=== PATIENT | male | born 1950 | race Caucasian/White ===

== ENCOUNTER 2017-10-02 08:54 | Outpatient (CLI) | payer MEDICARE, MEDICAID ==
--- NOTE | 2017-10-02 10:08 | CT ---
CT OF THE CHEST WITHOUT CONTRAST PER LOW DOSE CANCER SCREENING PROTOCOL: Date: 10/02/17 HISTORY: Persistent cough for over a year. Patient has a greater than 50 pack year smoking history. TECHNIQUE: Multiple contiguous axial images were obtained in a CT of the chest without contrast per low dose can cer screening protocol. Sagittal and coronal reformats were performed. FINDINGS: Emphysematous changes are seen in the lungs. Scarring is seen in the right apex associated with calci fications. No pulmonary nodules are identified. No pneumothorax or pleural effusion seen on the right . There is a trace left pleural effusion. The heart is normal in size. Calcifications are seen in the coronary arteries. No hilar or mediastina l lymphadenopathy are appreciated on this limited noncontrast examination. There are remote bilateral rib fractures. The visualized subdiaphragmatic structures are unremarkable . Degenerative changes are seen in the spine. The chest wall soft tissues are unremarkable. IMPRESSION: 1. Lung-RADS Category 1 - negative. 2. Trace left pleural effusion. POS: [facility]
--- NOTE | 2017-10-02 11:37 | ULT ---
ABDOMINAL AORTIC ULTRASOUND: CLINICAL HISTORY: Abdominal aortic screening for aneurysm. FINDINGS: The proximal abdominal aorta measures 1.9 x 2.2 cm. The mid abdominal aorta measures 1.9 x 1.5 cm. The distal abdominal aorta measures 1.8 x 1.7 cm. There is no aneurysmal dilatation of the imaged ab dominal aorta. There is minimal atherosclerotic irregularity. IMPRESSION: No aneurysmal dilatation of the imaged abdominal aorta. POS: [facility]
== END 2017-10-02 08:55 | disposition home or self-care (01) ==
LOC: ULT 08:54
PROVIDERS: ATTEND Family Medicine
DX: Z13.6 Encounter for screening for cardiovascular disorders (principal); J44.9 Chronic obstructive pulmonary disease, unspecified; F17.210 Nicotine dependence, cigarettes, uncomplicated; J90 Pleural effusion, not elsewhere classified; Z12.5 Encounter for screening for malignant neoplasm of prostate; Z13.1 Encounter for screening for diabetes mellitus; Z00.00 Encounter for general adult medical examination without abnormal findings
CPT/HCPCS: 76775; G0297; 36415; 80061; 82947; G0103

== ENCOUNTER 2018-09-27 09:30 | Emergency (ER) | payer MEDICARE, MEDICAID ==
[2018-09-27] MEDS ORDERED: methylPREDNISolone Sod Succ/PF 125 MG/2 ML VIAL ONE (10:05)
[2018-09-27 10:39] LABS: Hemoglobin 14.3 g/dL (14.0-18.0); Mean Corpuscular HGB CONC 32.6 g/dL (32.0-36.0); Mean Corpuscular Hemoglobin 29.9 pg (27.0-31.0); Mean Corpuscular Volume 91.6 fL (78.0-98.0); Mean Platelet Volume 7.6 fL (7.4-10.4); Platelet Count 282 thou/uL (130-400); RBC Distribution Width 12.2 % (11.5-14.5); Red Blood Cell (RBC) Count 4.79 mill/uL (4.70-6.10); White Blood Cell (WBC) Count 20.6 thou/uL (4.8-10.8)
[2018-09-27 10:57] LABS: Lymphocytes 12 % (21-51); MDiff Complete? YES; Monocytes 5 % (0-10); Neutrophil 82 % (42-75); Platelet Morphology Comment Appears Adequate; Reactive Lymphocytes 1 % (0-10)
[2018-09-27 11:00] LABS: ALT (SGPT) 27 U/L (8-55); AST (SGOT) 23 U/L (5-34); Albumin 4.1 g/dL (3.4-4.8); Alkaline Phosphatase 111 U/L (40-150); Anion Gap 16 mmol/L (10-20); BUN (Urea Nitrogen) 23 mg/dL (8.4-25.7); Bilirubin, Total 0.7 mg/dL (0.2-1.2); CK (CPK) 268 U/L (30-200); Calc. Creatinine Clearance 0 mL/min (70-130); Calcium 9.4 mg/dL (7.8-10.44); Carbon Dioxide 19 mmol/L (23-31); Chloride 104 mmol/L (98-107); Estimated GFR-MDRD 70; Globulin 3.3 g/dL (2.4-3.5); Glucose 107 mg/dL (80-115); Potassium 4.3 mmol/L (3.5-5.1); Protein, Total 7.4 g/dL (5.8-8.1); Sodium 135 mmol/L (136-145)
--- NOTE | 2018-09-27 11:04 | RAD ---
CHEST ONE VIEW: History: Cough. FINDINGS/IMPRESSION: Cardiac silhouette is magnified by projection. Pulmonary vasculature is unremarkable. POS: [facility]
--- NOTE | 2018-09-28 07:15 | RAD ---
CHEST 1 VIEW: HISTORY: Cough. Dyspnea. COMPARISON: 10/02/2017. FINDINGS: Cardiac silhouette is magnified by projection. Pulmonary vasculature is unremarkable. Linear areas of parenchymal scarring correlate with recent CT. No lobar consolidation or evidence of pneumothorax . Old left rib fractures are evident. IMPRESSION: Chronic-type findings appear stable. No active cardiopulmonary abnormalities are demonstrated. POS: [facility]
== END 2018-09-27 13:00 | disposition home or self-care (01) ==
LOC: ERS 09:30
DX: J44.1 Chronic obstructive pulmonary disease with (acute) exacerbation (principal); I10 Essential (primary) hypertension; J44.9 Chronic obstructive pulmonary disease, unspecified; Z87.891 Personal history of nicotine dependence; Z79.899 Other long term (current) drug therapy; Z79.82 Long term (current) use of aspirin
CPT/HCPCS: 36415; 71045; 80053; 82550; 83880; 84484; 85025; 87040; 87804; 93005; 94640; 94760; 96374; J2930; J7620

== ENCOUNTER 2019-07-10 02:32 | Inpatient (IN) | payer MEDICARE, OTHER ==
[2019-07-10] MEDS ORDERED: Propofol 1,000 MG/100 ML VIAL IV ONE (02:41)
[2019-07-10 02:54] LABS: #Basophils 0.1 thou/uL (0.0-0.2); #Eosinphils 0.3 thou/uL (0.0-0.7); #Lymphocytes 4.6 thou/uL (1.20-3.40); #Monocytes 0.8 thou/uL (0.11-0.59); #Neutrophils 4.7 thou/uL (1.40-6.50); %Basophils 0.7 % (0.0-1.0); %Eosinophils 3.1 % (0.0-10.0); %Lymphocytes 44.1 % (21.0-51.0); %Monocytes 7.5 % (0.0-10.0); %Neutrophils 44.7 % (42.0-75.0); Hemoglobin 13.3 g/dL (14.0-18.0); Mean Corpuscular HGB CONC 30.9 g/dL (32.0-36.0); Mean Platelet Volume 7.9 fL (7.4-10.4); Platelet Count 277 thou/uL (130-400); Red Blood Cell (RBC) Count 4.59 mill/uL (4.70-6.10); White Blood Cell (WBC) Count 10.5 thou/uL (4.8-10.8)
[2019-07-10 02:57] LABS: CO2 Tension 58.1 mmHg (35.0-45.0); pH, Arterial 7.23 (7.35-7.45)
[2019-07-10 02:58] LABS: Actual Bicarbonate (HCO3a) 23.7 mEq/L (22-28); Base Excess (BEa) -4.6 mEq/L (-2.0 to +3.0); Calcium, Ionized 1.16 mmol/L (1.12-1.30); Carboxyhemoglobin (COHb) 2.4 gm% (0.0-3.0); Hemoglobin (Hb) 13.2 g/dL (14.0-18.0); O2 Tension (PaO2) 548.8 mmHg (> 80.0); Potassium - ABG Lab 3.65 mmol/L (3.70-5.30)
[2019-07-10 02:59] LABS: ALV-art Gradient 91.575 (0-20); Analyzer IN Cardio ER; Puncture Site RRA
[2019-07-10 03:09] LABS: ALT (SGPT) 35 U/L (8-55); AST (SGOT) 34 U/L (5-34); Acetaminophen Less than 6.0 mcg/mL (10.0-30.0); Albumin 4.1 g/dL (3.4-4.8); Alcohol Less than 10 mg/dL (Less than 10); Alkaline Phosphatase 134 U/L (40-110); Anion Gap 17 mmol/L (10-20); BUN (Urea Nitrogen) 18 mg/dL (8.4-25.7); Bilirubin, Total 0.5 mg/dL (0.2-1.2); CK (CPK) 326 U/L (30-200); Calc. Creatinine Clearance 0 mL/min (70-130); Calcium 8.8 mg/dL (7.8-10.44); Carbon Dioxide 22 mmol/L (23-31); Chloride 106 mmol/L (98-107); Estimated GFR-MDRD 57; Globulin 2.7 g/dL (2.4-3.5); Glucose 220 mg/dL (80-115); Potassium 4.1 mmol/L (3.5-5.1); Protein, Total 6.8 g/dL (5.8-8.1); Salicylate Less than 8.0 mg/dL (15.0-30.0); Sodium 141 mmol/L (136-145)
[2019-07-10 03:35] LABS: Bacteria/HPF None Seen HPF (None Seen); RBC/HPF 0-3 HPF (0-3); Squamous Epithelial None Seen HPF (0-3)
[2019-07-10 03:36] LABS: Amphetamine Detected (NotDetected); Barbiturates Screen Not Detected (NotDetected); Benzodiazepine Screen Not Detected (NotDetected); Cocaine Metabolite Screen Not Detected (NotDetected); Medtox Control Line Valid? VALID (VALID); Medtox Reader # READER 4; Methadone Not Detected (NotDetected); Methamphetamine Detected (NotDetected); Opiate Screen Detected (NotDetected); Oxycodone Screen Not Detected (NotDetected); Phencyclidine (PCP) Not Detected (NotDetected); THC/Cannabinoid Screen Not Detected (NotDetected); Tricyclic Screen Not Detected (NotDetected)
[2019-07-10 03:37] LABS: Clarity Clear (Clear); Sperm/HPF 2+ HPF (None Seen)
[2019-07-10 03:41] LABS: Bilirubin Negative (Negative); Blood, Urine Negative (Negative); Glucose, Urine (Dipstick) Normal (Negative); Leukocyte Negative Leu/uL (Negative); Nitrite Negative (Negative); Protein, Urine (Dipstick) 50 mg/dL (Neg-Trace)
[2019-07-10 04:10] LABS: Actual Bicarbonate (HCO3a) 25.5 mEq/L (22-28); Base Excess (BEa) -1.3 mEq/L (-2.0 to +3.0); CO2 Tension 51.7 mmHg (35.0-45.0); Hemoglobin (Hb) 12.2 g/dL (14.0-18.0); O2 Tension (PaO2) 314.2 mmHg (> 80.0); pH, Arterial 7.31 (7.35-7.45)
[2019-07-10 04:11] LABS: ALV-art Gradient -22.325 (0-20); Analyzer IN Cardio ER; Calcium, Ionized 1.14 mmol/L (1.12-1.30); Carboxyhemoglobin (COHb) 1.8 gm% (0.0-3.0); Potassium - ABG Lab 3.68 mmol/L (3.70-5.30); Puncture Site RRA
[2019-07-10] MEDS ORDERED: Acetaminophen 325 MG Suppository PR PRN (04:54)
[2019-07-10] MEDS ORDERED: Bisacodyl 10 MG SUPP PR PRN (04:54)
[2019-07-10] MEDS ORDERED: Milk Of Magnesia 30 ML UDCUP PO PRN (04:54)
[2019-07-10] MEDS ORDERED: Dextrose 5 % And 0.9 % NaCl 1,000 ML IV SCH (05:00)
[2019-07-10] MEDS ORDERED: Acetaminophen 325 MG TAB PO PRN (05:05)
[2019-07-10] MEDS ORDERED: Acetaminophen 650 MG Suppository PR PRN (05:05)
[2019-07-10] MEDS ORDERED: Ventilator Sedation Protocol 1 EACH FS ONE (05:07)
[2019-07-10] MEDS ORDERED: Propofol BOLUS 1,000 MG/100 ML VIAL IV PRN (05:15)
[2019-07-10] MEDS ORDERED: fentaNYL Citrate/PF 2,000 MCG in Sodium Chloride 0.9% 60 ML IV SCH (05:15)
[2019-07-10] MEDS ORDERED: Fentanyl BOLUS 250 ML IVPB PRN (05:15)
[2019-07-10] MEDS ORDERED: Morphine 2 MG/ML SYRINGE SLOW IVP PRN (05:15)
[2019-07-10] MEDS ORDERED: DISCONTINUE PREVIOUS NARCOTIC PAIN MEDICATIONS AND BENZODIAZEPINES FS SCH (05:15)
[2019-07-10] MEDS: Sodium Bicarbonate 50 MEQ in Dextrose 5 %-0.45 % NaCl 1,000 ML IV SCH ×3 (05:24→21:32)
[2019-07-10 05:42] VITALS: BMI 25.0
--- NOTE | 2019-07-10 06:01 | HP ---
PRIMARY CARE PHYSICIAN: Arias Martniez DO The patient was last seen by Dr. Martinez in January 2018. CHIEF COMPLAINT/REASON FOR ADMISSION: Unresponsiveness. HISTORY OF PRESENT ILLNESS: The patient is a 68-year-old male with hypertension, tobacco dependence, and severe COPD, was brought in by EMS with unresponsiveness. Please note that there is no family at the bedside. Dr. Arias Martinez's office records from last year were reviewed. He has not seen Dr. Martinez since last year. He has a history of severe COPD. The patient was brought by EMS due to unresponsiveness. He was found with a needle in his arm. It is unclear who called the EMS. Per ER record, the home clinic charge nurse on the scene informed EMS, that they did not know the patient, but allowed him to enter the home to shower. The patient was hypoxic with O2 saturation of 50% at the scene. He was intubated. He received ketamine, rocuronium. The EMS also found a rescue inhaler with the patient. PAST MEDICAL HISTORY: 1. Severe COPD. 2. Hypertension. 3. Tobacco dependence. 4. Erectile dysfunction. 5. Chronic hepatitis C. 6. Chronic cough. 7. History of incarceration. The patient was 5 years at [place] [facility]. 8. History of tuberculosis, completed treatment. PAST SURGICAL HISTORY: Bilateral cataract surgery. ALLERGIES: NO KNOWN DRUG ALLERGIES. CURRENT HOME MEDICATIONS: Per review of Dr. Arias Martinez's office record from January 2018, his medications included; 1. Aspirin 81 mg daily. 2. Amlodipine 5 mg daily. 3. Symbicort 160/4.5 two puffs b.i.d. 4. Incruse Ellipta 62.5 one puff daily. 5. Bupropion ER 150 mg daily. 6. Albuterol inhaler as needed. 7. Daliresp [address] Gee .. SOCIAL HISTORY: The patient has more than 25 pack-year smoking history. He smokes up to half pack a day per review of previous record. FAMILY HISTORY: Father secondary to [place] flu. Mother with hypertension and stroke. REVIEW OF SYSTEMS: Cannot be reliably obtained from the patient due to current cognitive status. PHYSICAL EXAMINATION: VITAL SIGNS: Temperature 96.6, respiration of 20, pulse rate of 106, blood pressure of 130/85, saturation 100% on ventilator. GENERAL: A 68-year-old male, unresponsive, on mechanical ventilation. HEENT: Head, atraumatic and normocephalic. Pinpoint pupils bilaterally. Endotracheal tube noted. NECK: Supple. No JVD. No carotid bruit. LUNGS: Showed bilateral rhonchi without significant wheezing or rales. No accessory muscle use. HEART: S1, S2 present. Regular rate and rhythm. No rubs or gallops. ABDOMEN: Soft. Hypoactive bowel sounds. No guarding or rigidity. EXTREMITIES: No edema or calf tenderness. NEUROLOGIC/PSYCHIATRIC: Examination could not be reliably done due to current mentation. SKIN: Warm and dry. LYMPH NODES: No palpable lymph nodes in the neck. PERIPHERAL VASCULAR: Radial pulses palpable bilaterally. MUSCULOSKELETAL: No joint swelling or tenderness. LABORATORY FINDINGS: CBC showed WBC 10.5 with hemoglobin 13.3, hematocrit 43.1, platelet of 277. ABG showed pH 7.23 with pCO2 58.1, PO2 548 with FiO2 of 100% on mechanical ventilation. Lactic acid 3.0, sodium 141, potassium 4.1, chloride 106, bicarb 22, BUN 18, creatinine 1.25. CK was 326, alkaline phosphorus is 134. Urine drug screen was positive for amphetamine, methamphetamine, and opiates. Urinalysis showed 4 to 6 wbc's without any bacteria. EKG by my review showed sinus rhythm with left ventricular hypertrophy. QT interval was 495. Chest x-ray by my review showed increased bronchopulmonary markings without definite infiltrate. CT scan of the brain has been done. Report is pending at this time. IMPRESSION: 1. Acute hypoxic and hypercapnic respiratory failure secondary to drug overdose. 2. Severe chronic obstructive pulmonary disease. 3. Dehydration with lactic acidosis. 4. Polysubstance abuse. 5. Ongoing tobacco dependence. 6. Anemia, suspected chronic. 7. Hypertension. 8. Chronic hepatitis C. 9. Chronic cough. PLAN: The patient will be monitored in the intensive care unit. He is currently intubated. We will continue mechanical ventilation. We will minimize sedation. Consult Critical Care, Dr. Milan. IV hydration. We will add sodium bicarbonate to IV fluids due to slightly prolonged QT interval. Daily ABGs and chest x-ray. We will hold antibiotics for now. His troponin was negative. We will recheck lactic acid later today. We will discuss the plan of care with the family when they arrive. We will resume Sheila. Job ID: [id number]
[2019-07-10 06:56] LABS: Lactic Acid 1.4 mmol/L (0.5-2.2)
[2019-07-10] MEDS: Mometasone/Formoterol 120 PUFF INHALER INH SCH ×2 (07:56→19:11)
[2019-07-10] MEDS: Enoxaparin Sodium 40 MG/0.4 ML SYRINGE SC SCH (08:40)
[2019-07-10] MEDS: Famotidine/PF 20 mg/2ml Vial SLOW IVP SCH ×2 (08:41→20:07)
--- NOTE | 2019-07-10 11:00 | RAD ---
PORTABLE CHEST 1 VIEW: Date: 07/10/19 Time: 0238 hours HISTORY: Altered mental status. FINDINGS/IMPRESSION: Comparison made with exam of 09/27/18. The heart size is normal. Chronic changes are again seen. No lobar consolidation, pneumothoraces, or large effusions are seen. POS: [facility]
--- NOTE | 2019-07-10 11:02 | RAD ---
ABDOMEN 1 VIEW: Date: 07/10/19 HISTORY: Altered mental status. FINDINGS/IMPRESSION: The bowel gas pattern is unremarkable. There is a nasogastric tube with tip in the projection of the GE junction. There is a 5.5 mm calculus in the projection of the inferior pole of the right kidney. Discussed over the telephone with ER physician, Dr. Vanessa Parsons, at 0956 hours. CODE CR. POS: [facility]
--- NOTE | 2019-07-10 12:04 | CT ---
PRELIMINARY REPORT/[facility]/EMERGENCY AFTER HOURS PROCEDURE: PROCEDURE INFORMATION: Exam: CT Head Without Contrast Exam date and time: 07/10/2019 3:40 AM Clinical history: 68 years old, male; Patient HX: Unresponsive 68 y/o m presents to ED via EMS transp ort after being found down in another individual's home, with 911 caller reporting that PT had a need le in his arm when found; Unknown downtime. Individuals/homeowners on scene informed EMS that they di d not know PT but allowed him to enter the home to shower TECHNIQUE: Imaging protocol: Computed tomography of the head without contrast. COMPARISON: No relevant prior studies available. FINDINGS: Brain: No hemorrhage. Patchy whitte matter hypodensities are nonspecific but may be seen in small ves tanika chronic ischemic changes. No mass effect. Ventricles: No ventriculomegaly. Bones/joints: No acute fracture. Sinuses: Scattered paranasal sinuses mucosal thickenning. No fluid levels. Mastoid air cells: Visualized mastoid air cells are well aerated. Soft tissues: Unremarkable. IMPRESSION: No acute intracranial abnormality. Thank you for allowing us to participate in the care of your patient. Dictated and Authenticated by: Candice Nuñez MD 07/10/2019 3:51 AM Central Time ([place] & [place]) FINAL REPORT CT BRAIN WITHOUT CONTRAST: IMPRESSION: I agree with the preliminary report given by Darwin. POS: [facility]
[2019-07-10] MEDS: Lorazepam 2 MG/ML VIAL SLOW IVP PRN ×3 (12:26→15:23)
[2019-07-10] MEDS: Propofol 1,000 MG/100 ML VIAL IV PRN (15:51)
[2019-07-10 19:10] LABS: HBCM Index 0.05 S/CO (0-0.79); HBSAg Index 0.17 S/CO (0-0.99); HIV (1/2) Antibody/Antigen Non-Reactive (NonReactive); HIV 1/2 INDEX 0.08 S/CO (<1.00); Hep A IgM AB Non-Reactive (NonReactive); Hep A IgM S/CO 0.09 S/CO (0-0.79); Hep B Surf Ag Non-Reactive S/CO (NonReactive); Hepatitis B Core IgM Abs Non-Reactive (NonReactive)
[2019-07-10 19:11] LABS: Hep C IgG Ab Reflex HepC Qnt (NonReactive); Hep C Index 9.98 S/CO (0-0.79)
--- NOTE | 2019-07-11 00:24 | CON ---
DATE OF CONSULTATION: 07/10/2019 SUBJECTIVE: Mr. Bello is a 68-year-old male, who was found down with a needle in his arm at home sometime early this morning. He is admitted. His drug screen positive for amphetamines and opiates. He is mechanically ventilated. PAST MEDICAL HISTORY: Unknown. FAMILY HISTORY: Unknown. SOCIAL HISTORY: Unknown. REVIEW OF SYSTEMS: Not obtainable. PHYSICAL EXAMINATION: VITAL SIGNS: Afebrile. Blood pressure has been stable. Heart rates in the 70s , respiratory rate is 20. HEENT: Pupils are small. Sclerae anicteric. NECK: Supple. LUNGS: Clear. HEART: Regular rhythm. ABDOMEN: Soft and nontender. EXTREMITIES: Without clubbing, cyanosis, or edema. LABORATORY DATA: White count 10.5, hemoglobin 13.3, platelets 277. Electrolytes are normal. PH 7.31, CO2 of 51, PO2 of 314. IMPRESSION: Respiratory failure associated likely with an opiate overdose. He also uses methamphetamines. He is an IV drug abuser. An HIV should be sent. He will be mechanically ventilated until we are sure he is stable from neurological standpoint. CRITICAL CARE TIME: 30 minutes. Job ID: [id number] MTDD
[2019-07-11] MEDS: Propofol 1,000 MG/100 ML VIAL IV PRN (01:29)
[2019-07-11] MEDS: Lorazepam 2 MG/ML VIAL SLOW IVP PRN (01:29)
[2019-07-11 04:43] LABS: #Eosinphils 0.1 thou/uL (0.0-0.7); #Lymphocytes 2.1 thou/uL (1.20-3.40); #Monocytes 1.2 thou/uL (0.11-0.59); #Neutrophils 8.5 thou/uL (1.40-6.50); %Basophils 0.3 % (0.0-1.0); %Eosinophils 1.2 % (0.0-10.0); %Lymphocytes 17.8 % (21.0-51.0); %Monocytes 9.9 % (0.0-10.0); %Neutrophils 70.8 % (42.0-75.0); Hemoglobin 11.2 g/dL (14.0-18.0); Mean Corpuscular HGB CONC 32.8 g/dL (32.0-36.0); Mean Corpuscular Hemoglobin 30.2 pg (27.0-31.0); Mean Corpuscular Volume 92.1 fL (78.0-98.0); Mean Platelet Volume 7.8 fL (7.4-10.4); Platelet Count 233 thou/uL (130-400); RBC Distribution Width 13.7 % (11.5-14.5); Red Blood Cell (RBC) Count 3.72 mill/uL (4.70-6.10)
[2019-07-11 05:10] LABS: ALT (SGPT) 23 U/L (8-55); AST (SGOT) 18 U/L (5-34); Alkaline Phosphatase 89 U/L (40-110); Anion Gap 13 mmol/L (10-20); BUN (Urea Nitrogen) 14 mg/dL (8.4-25.7); Bilirubin, Total 0.6 mg/dL (0.2-1.2); Calc. Creatinine Clearance 78 mL/min (70-130); Calcium 8.1 mg/dL (7.8-10.44); Carbon Dioxide 24 mmol/L (23-31); Chloride 103 mmol/L (98-107); Estimated GFR-MDRD 69; Globulin 2.5 g/dL (2.4-3.5); Glucose 141 mg/dL (80-115); Potassium 3.5 mmol/L (3.5-5.1); Protein, Total 5.5 g/dL (5.8-8.1); Sodium 136 mmol/L (136-145)
[2019-07-11] MEDS: Sodium Bicarbonate 50 MEQ in Dextrose 5 %-0.45 % NaCl 1,000 ML IV SCH ×2 (05:46→21:05)
[2019-07-11 06:47] LABS: Actual Bicarbonate (HCO3a) 24.7 mEq/L (22-28); CO2 Tension 40.1 mmHg (35.0-45.0); Calcium, Ionized 1.13 mmol/L (1.12-1.30); Carboxyhemoglobin (COHb) 1.3 gm% (0.0-3.0); Hemoglobin (Hb) 11.7 g/dL (14.0-18.0); Potassium - ABG Lab 3.62 mmol/L (3.70-5.30); pH, Arterial 7.41 (7.35-7.45)
[2019-07-11 06:48] LABS: ALV-art Gradient 77.775 (0-20); Puncture Site RRA
[2019-07-11] MEDS: Mometasone/Formoterol 120 PUFF INHALER INH SCH ×2 (07:45→19:02)
[2019-07-11] MEDS: Enoxaparin Sodium 40 MG/0.4 ML SYRINGE SC SCH (08:23)
[2019-07-11] MEDS: Famotidine/PF 20 mg/2ml Vial SLOW IVP SCH ×2 (08:23→21:10)
[2019-07-11] MEDS: Senokot S 8.6-50 MG TAB PO SCH ×2 (08:23→21:13)
--- NOTE | 2019-07-11 09:55 | RAD ---
FRONTAL VIEW CHEST: INDICATIONS: ICU chest followup. COMPARISON: Previous day's chest radiograph and abdominal radiograph. FINDINGS: Diffuse interstitial opacification with superimposed areas of ground glass opacity present throughout each lung. Supportive lines and tubes are grossly stable although there is extrinsic artifact limiti ng detail. IMPRESSION: No significant interval change from the previous day. POS: [facility]
--- NOTE | 2019-07-11 11:42 | PRG ---
DATE OF SERVICE: 07/11/2019 SUBJECTIVE: Mr. Bello is combative when he is awakened. Plan was to extubate him today once sedation was held and he was awake. OBJECTIVE: VITAL SIGNS: Heart rate 107, blood pressure 143/88, oximetry is 99% on room air. LUNGS: Clear. HEART: Regular rhythm. ABDOMEN: Soft. EXTREMITIES: Without edema. LABORATORY DATA: White count 12, hemoglobin 11.2, platelets 233. Electrolytes are normal. IMPRESSION: 1. Status post drug overdose. 2. IV drug abuse. 3. Mild anemia with a normal mean corpuscular volume. 4. Drug screen positive for opiates, amphetamines and methamphetamines. 5. Hepatitis C antibody positive, human immunodeficiency virus negative. If he becomes ambulatory by the end of the day, I would think he could be discharged home if somebody is willing to come get him. Job ID: [id number]
--- NOTE | 2019-07-11 16:13 | PDOC.HOSPP ---
- Subjective Encounter Date: 07/11/19 Encounter Time: 16:00 Subjective: f/u s/p resp failure after methamphetamine OD and mech ventilation. Extubated this am and remains sleepy but arouses to direct engagement. States he wants to leave but has no home or anyone to come pick him up. - Objective Vital Signs & Weight: Vital Signs (12 hours) Temp Pulse Resp BP Pulse Ox 07/11/19 12:00 98.5 F 98 07/11/19 10:55 111 H 33 H 99 07/11/19 10:26 107 H 143/88 H 07/11/19 10:00 28 H 07/11/19 08:00 99.5 F 20 100 07/11/19 07:46 90 111/64 07/11/19 06:00 20 Weight Weight 184 lb 4.903 oz Most Recent Monitor Data Heart Rate from ECG 98 NIBP 161/88 NIBP BP-Mean 112 Respiration from ECG 28 SpO2 99 I&O: 07/10/19 07/11/19 07/12/19 06:59 06:59 06:59 Intake Total 139 3124 27.4 Output Total 275 1835 1655 Balance -136 1289 -1627.6 Result Diagrams: 07/11/19 04:15 07/11/19 04:15 Additional Labs: Accuchecks 07/11/19 07/11/19 07/11/19 12:50 06:17 00:13 POC Glucose 91 127 H 120 H 07/10/19 17:32 POC Glucose 105 Laboratory Tests 07/10/19 07/10/19 02:43 18:06 Urine Opiates Screen Detected H Ur Amphetamines Screen Detected H U Methamphetamines Scrn Detected H Hepatitis C Antibody Reflex HepC Qnt H Radiology Reviewed by me: Yes (PCXR - chronic changes bilat) EKG Reviewed by me: Yes (Tele - Sinus tachycardia in low-100's) Hospitalist ROS - Medication Medications: Active Medications Generic Name Dose Route Start Last Admin Trade Name Freq PRN Reason Stop Dose Admin Albuterol/Ipratropium 3 ml 07/10/19 07:00 07/11/19 13:42 Duoneb NEB Not Given [id number] SHAHRAM Enoxaparin Sodium 40 mg 07/10/19 09:00 07/11/19 08:23 Lovenox SC 40 mg 0900 SHAHRAM Administration Famotidine 20 mg 07/10/19 09:00 07/11/19 08:23 Pepcid SLOW IVP 20 mg Q12HR SHAHRAM Administration Sodium Bicarbonate 50 meq/ 1,050 mls @ 125 mls/hr 07/10/19 05:15 07/11/19 05: 46 Dextrose/Sodium Chloride IV 1,050 mls .[id number] SHAHRAM Administration Lorazepam 2 mg 07/10/19 05:15 07/11/19 01:29 Ativan SLOW IVP 08/09/19 05:15 2 mg Q1H PRN Administration Breakthrough agitation Mometasone Furoate/Formoterol Fumar 2 puff 07/10/19 06:30 07/11/19 07:45 Dulera 200 Mcg/5 Mcg Inhaler INH 2 puff BID-RT SHAHRAM Administration Morphine Sulfate 2 mg 07/10/19 05:15 07/10/19 15:15 Morphine SLOW IVP 08/09/19 05:15 2 mg Q1H PRN Administration BREAKTHROUGH PAIN/Agitation Propofol 1,000 mg 07/10/19 05:15 07/11/19 01:29 Diprivan IV 08/09/19 05:15 1,000 mg INF PRN Administration TO ACHIEVE GOAL RASS Protocol Senna/Docusate Sodium 2 tab 07/11/19 09:00 07/11/19 08:23 Senokot S PO Not Given BID SHAHRAM - Exam General - other findings: arouses and answers questions briefly Eye: PERRL, anicteric sclera ENT: normocephalic atraumatic, no oropharyngeal lesions Neck: supple, symmetric, no JVD, no thyromegaly, no lymphadenopathy Heart: no murmur, no rubs, normal peripheral pulses Heart - other findings: tachycardic Respiratory - other findings: few scattered rhonchi Gastrointestinal: soft, non-tender, non-distended, normal bowel sounds Extremities: no cyanosis, no clubbing, no edema Skin: normal turgor, no lesions Neurological: no new deficit Psychiatric: oriented to person Psychiatric - other findings: flat affect, brief engagment to questions, sleepy Hosp A/P (1) Acute respiratory failure with hypoxia Code(s): J96.01 - ACUTE RESPIRATORY FAILURE WITH HYPOXIA Status: Acute Plan: s/p intubation now extubated, continue pulmonary support with O2 via NC (2) Methamphetamine intoxication Code(s): F15.929 - OTHER STIMULANT USE, UNSP WITH INTOXICATION, UNSPECIFIED Status: Acute Plan: Supportive mgmt, cessation resources (3) Toxic metabolic encephalopathy Code(s): G92 - TOXIC ENCEPHALOPATHY Status: Acute Plan: Multifactorial including polysubstance abuse, improved (4) Tobacco abuse Code(s): Z72.0 - TOBACCO USE Status: Chronic Plan: Tobacco cessation resources (5) Hepatitis C Code(s): B19.20 - UNSPECIFIED VIRAL HEPATITIS C WITHOUT HEPATIC COMA Status: Chronic - Plan PT/OT, social sciences research scientist, respiratory therapy, out of bed/ambulate, DVT proph w/ SCDs Stable currently continue pulmonary support Resume regular diet CM for disposition planning Transfer to medical floor Likely home in am
[2019-07-12] MEDS: Mometasone/Formoterol 120 PUFF INHALER INH SCH (06:22)
[2019-07-12] MEDS: Famotidine/PF 20 mg/2ml Vial SLOW IVP SCH (08:08)
[2019-07-12] MEDS: Enoxaparin Sodium 40 MG/0.4 ML SYRINGE SC SCH (08:08)
[2019-07-12] MEDS: Senokot S 8.6-50 MG TAB PO SCH (08:08)
[2019-07-12 16:04] VITALS: BP 126/81; TEMP 97.8
--- NOTE | 2019-07-13 04:26 | DIS ---
DATE OF ADMISSION: 07/10/2019 DATE OF DISCHARGE: 07/12/2019 DISCHARGE DIAGNOSES: 1. Acute hypoxemic hypercapnic respiratory failure secondary to drug overdose. 2. Severe chronic obstructive pulmonary disease exacerbation. 3. Dehydration with lactic acidosis. 4. Polysubstance abuse. 5. Ongoing tobacco dependence. 6. Chronic anemia. 7. Hypertension. 8. Chronic hepatitis C. PHYSICAL EXAMINATION: VITAL SIGNS: Blood pressure 152/80, temperature 97.5, pulse 83, respirations 20, oxygen saturation 94%. GENERAL: The patient is alert, awake, in no distress. CHEST: Normal vesicular breathing. HEART: Sound normal. ABDOMEN: Soft, benign, no tenderness, no organomegaly. EXTREMITIES: Negative edema of feet. LABORATORY DATA: CBC unremarkable except white blood cell 12.0. ABGs on admission, 7.31, 51, 314. BMP unremarkable. Blood glucose 127. LFTs normal. Chest x-ray, 07/11/2019. HOSPITAL SUMMARY: The patient, Kulwant Rodriguez, was admitted on 07/10/2019 by EMS with unresponsiveness. The patient was also found to have a needle in the arm. In the emergency room, patient was hypoxic with 50%. He was intubated and admitted to ICU and patient was found to be in hypercapnic respiratory failure and drug shows amphetamine, methamphetamine, and opioids, though patient denies any drug abuse. Patient extubated and currently alert, awake, oriented, no distress, walking normally with room air. The patient also has THC positive. The patient is currently stable, being discharged. Advised to follow up as outpatient with PCP. Patient being discharged in a stable condition. Also advised to follow up with Pulmonology. Job ID: [id number]
[2019-07-13 13:11] LABS: Hep C PCR-Quant HCV Not Detected IU/mL (.)
== END 2019-07-12 18:32 | disposition home or self-care (01) | DRG 917 ==
LOC: ERS 02:32 → CCU 04:10 → T4-B 07-11 20:01
PROVIDERS: ADMIT Internal Medicine; ATTEND Internal Medicine
PROC: 5A1945Z Respiratory Ventilation, 24-96 Consecutive Hours (ICD-10-PCS; principal; 2019-07-10)
PROC: 0BH17EZ Insertion of Endotracheal Airway into Trachea, Via Natural or Artificial Opening (ICD-10-PCS; 2019-07-10)
DX: T40.601A Poisoning by unspecified narcotics, accidental (unintentional), initial encounter (principal); R40.2312 Coma scale, best motor response, none, at arrival to emergency department; R40.2112 Coma scale, eyes open, never, at arrival to emergency department; R40.2212 Coma scale, best verbal response, none, at arrival to emergency department; J96.01 Acute respiratory failure with hypoxia; J96.02 Acute respiratory failure with hypercapnia; G92 Toxic encephalopathy; E87.2 Acidosis; J44.1 Chronic obstructive pulmonary disease with (acute) exacerbation; Z79.899 Other long term (current) drug therapy; I10 Essential (primary) hypertension; F17.200 Nicotine dependence, unspecified, uncomplicated; B19.20 Unspecified viral hepatitis C without hepatic coma; Z98.42 Cataract extraction status, left eye; Z98.41 Cataract extraction status, right eye; Z79.82 Long term (current) use of aspirin; E86.0 Dehydration; F19.10 Other psychoactive substance abuse, uncomplicated; D64.9 Anemia, unspecified; T43.621A Poisoning by amphetamines, accidental (unintentional), initial encounter
CPT/HCPCS: 36415; 36416; 70450; 71045; 74018; 80053; 80074; 80306; 80307; 81003; 81015; 82550; 82805; 83605; 83880; 84484; 85025; 87389; 87522; 93005; 94002; 94003; 94640; 96365; 96366; J1650; J2060; J2270; J2704; J7042; J7620; S0028

== ENCOUNTER 2020-12-08 17:59 | Inpatient (IN) | payer MEDICARE, MEDICAID ==
[~2020-12-08 17:59] MED LIST: Iopamidol-370 76% 500 ML 1 ML ONE
[2020-12-08 18:42] LABS: #Eosinphils 0.2 thou/uL (0.0-0.7); #Lymphocytes 1.8 thou/uL (1.20-3.40); #Monocytes 1.4 thou/uL (0.11-0.59); %Basophils 0.3 % (0.0-1.0); %Eosinophils 1.6 % (0.0-10.0); %Lymphocytes 14.8 % (21.0-51.0); %Monocytes 11.2 % (0.0-10.0); %Neutrophils 72.1 % (42.0-75.0); Hemoglobin 13.3 g/dL (14.0-18.0); Mean Corpuscular HGB CONC 32.8 g/dL (32.0-36.0); Mean Corpuscular Hemoglobin 30.8 pg (27.0-31.0); Mean Platelet Volume 7.7 fL (7.4-10.4); Platelet Count 260 thou/uL (130-400); RBC Distribution Width 13.6 % (11.5-14.5); Red Blood Cell (RBC) Count 4.31 mill/uL (4.70-6.10); White Blood Cell (WBC) Count 12.5 thou/uL (4.8-10.8)
[2020-12-08 19:04] LABS: ALT (SGPT) 27 U/L (8-55); AST (SGOT) 29 U/L (5-34); Albumin 3.7 g/dL (3.4-4.8); Alkaline Phosphatase 104 U/L (40-110); Anion Gap 17 mmol/L (10-20); BUN (Urea Nitrogen) 29 mg/dL (8.4-25.7); Bilirubin, Total 1.1 mg/dL (0.2-1.2); Calc. Creatinine Clearance 0 mL/min (70-130); Calcium 8.9 mg/dL (7.8-10.44); Carbon Dioxide 24 mmol/L (23-31); Chloride 109 mmol/L (98-107); Globulin 2.8 g/dL (2.4-3.5); Glucose 100 mg/dL (80-115); Potassium 4.5 mmol/L (3.5-5.1); Protein, Total 6.5 g/dL (5.8-8.1); Sodium 145 mmol/L (136-145)
[2020-12-08 19:24] LABS: CKMB 6.1 ng/mL (0-6.6)
[2020-12-08] MEDS ORDERED: Aspirin Chewable 81 MG TAB ONE (19:46)
[2020-12-08] MEDS ORDERED: methylPREDNISolone Sod Succ/PF 125 MG/2 ML VIAL IVP ONE (22:06)
[2020-12-08] MEDS ORDERED: Furosemide 40 MG/4 ML VIAL SLOW IVP SCH (22:15)
[2020-12-08 22:45] LABS: Troponin I 0.125 ng/mL (< 0.028)
[2020-12-08 23:04] LABS: Actual Bicarbonate (HCO3a) 26.5 mEq/L (22-28); Analyzer IN Cardio ER; Base Excess (BEa) 2.3 mEq/L (-2.0 to +3.0); CO2 Tension 39.4 mmHg (35.0-45.0); Calcium, Ionized (arterial) 1.17 mmol/L (1.12-1.30); Carboxyhemoglobin (COHb) 0.7 gm% (0.0-3.0); Hemoglobin (Hb) 13.6 g/dL (14.0-18.0); Potassium - ABG Lab 4.47 mmol/L (3.70-5.30); pH, Arterial 7.45 (7.35-7.45)
[2020-12-09 00:22] LABS: O2 Tension (PaO2), arterial 58.8 mmHg (> 70.0); Puncture Site RRA
[2020-12-09] MEDS ORDERED: Enoxaparin Sodium 100 MG/ML SYRINGE SC SCH (00:50)
[2020-12-09 01:50] LABS: Troponin I 0.135 ng/mL (< 0.028)
[2020-12-09] MEDS: Azithromycin 500 MG in Sodium Chloride 0.9% 250 ML 250 ML IVPB SCH (01:51)
[2020-12-09 06:28] LABS: Bacteria/HPF None Seen HPF (None Seen); Bilirubin Negative (Negative); Blood, Urine Negative (Negative); Clarity Clear (Clear); Glucose, Urine (Dipstick) Normal (Negative); Ketone, Urine Negative (Negative); Leukocyte Negative Leu/uL (Negative); Nitrite Negative (Negative); Protein, Urine (Dipstick) 10 mg/dL (Neg-Trace); RBC/HPF 0-3 HPF (0-3); Specific Gravity, Urine 1.013 (1.002-1.036); Squamous Epithelial None Seen HPF (0-3); Urobilinogen Normal mg/dL (Less than 2); WBC/HPF 0-3 HPF (0-3)
[2020-12-09 06:35] LABS: Amphetamine Not Detected (NotDetected); Barbiturates Screen Not Detected (NotDetected); Benzodiazepine Screen Not Detected (NotDetected); Cocaine Metabolite Screen Not Detected (NotDetected); Medtox Control Line Valid? VALID (VALID); Medtox Reader # READER 4; Methadone Not Detected (NotDetected); Methamphetamine Detected (NotDetected); Opiate Screen Not Detected (NotDetected); Oxycodone Screen Not Detected (NotDetected); Phencyclidine (PCP) Not Detected (NotDetected); THC/Cannabinoid Screen Not Detected (NotDetected); Tricyclic Screen Not Detected (NotDetected)
[2020-12-09 06:36] LABS: Urine Culture Reflex No No
[2020-12-09] MEDS: Enoxaparin Sodium 100 MG/ML SYRINGE SC SCH ×2 (09:25→21:12)
[2020-12-09] MEDS: methylPREDNISolone Sod Succ 40 MG VIAL IVP SCH (09:26)
[2020-12-09 13:18] LABS: SARS-CoV-2 PCR by NAA Not Detected (NotDetected)
[2020-12-09 15:06] VITALS: BMI 29.2
[2020-12-09] MEDS ORDERED: Diltiazem 125 MG in Sodium Chloride 0.9% 100 ML IVPB SCH (18:45)
[2020-12-09] MEDS: Budesonide 0.25 MG/2 ML NEB NEB SCH (19:22)
[2020-12-10] MEDS: Azithromycin 500 MG in Sodium Chloride 0.9% 250 ML 250 ML IVPB SCH (00:12)
[2020-12-10 04:40] LABS: #Lymphocytes 1.8 thou/uL (1.20-3.40); #Monocytes 1.8 thou/uL (0.11-0.59); #Neutrophils 12.3 thou/uL (1.40-6.50); %Basophils 0.1 % (0.0-1.0); %Eosinophils 0.2 % (0.0-10.0); %Lymphocytes 11.2 % (21.0-51.0); %Monocytes 11.3 % (0.0-10.0); %Neutrophils 77.2 % (42.0-75.0); Hemoglobin 12.9 g/dL (14.0-18.0); Mean Corpuscular HGB CONC 31.1 g/dL (32.0-36.0); Mean Corpuscular Hemoglobin 29.5 pg (27.0-31.0); Mean Corpuscular Volume 94.8 fL (78.0-98.0); Mean Platelet Volume 7.7 fL (7.4-10.4); Platelet Count 272 thou/uL (130-400); RBC Distribution Width 13.6 % (11.5-14.5); Red Blood Cell (RBC) Count 4.38 mill/uL (4.70-6.10); White Blood Cell (WBC) Count 15.9 thou/uL (4.8-10.8)
[2020-12-10 04:59] LABS: Anion Gap 14 mmol/L (10-20); BUN (Urea Nitrogen) 35 mg/dL (8.4-25.7); Calc. Creatinine Clearance 58 mL/min (70-130); Calcium 8.4 mg/dL (7.8-10.44); Carbon Dioxide 25 mmol/L (23-31); Chloride 105 mmol/L (98-107); Glucose 169 mg/dL (80-115); Potassium 3.9 mmol/L (3.5-5.1); Sodium 140 mmol/L (136-145)
[2020-12-10] MEDS: Budesonide 0.25 MG/2 ML NEB NEB SCH ×2 (07:10→19:17)
[2020-12-10] MEDS: Enoxaparin Sodium 100 MG/ML SYRINGE SC SCH (08:50)
[2020-12-10] MEDS: methylPREDNISolone Sod Succ 40 MG VIAL IVP SCH (09:08)
[2020-12-10] MEDS ORDERED: Furosemide 20 MG/2 ML VIAL SLOW IVP SCH (13:30)
[2020-12-10] MEDS ORDERED: Potassium Chloride 20 MEQ TAB PO SCH (13:30)
[2020-12-10] MEDS ORDERED: Metoprolol Tartrate 5 MG/5 ML VIAL IVP PRN (20:54)
[2020-12-10] MEDS ORDERED: Metoprolol Tartrate 5 MG/5 ML VIAL IVP SCH ×2 (22:15→23:59)
[2020-12-11] MEDS ORDERED: Diltiazem HCl 125 MG, Admixture Fee 1 EACH in Sodium Chloride 0.9% 100 ML IVPB SCH ×2 (03:15→09:11)
[2020-12-11] MEDS: Budesonide 0.25 MG/2 ML NEB NEB SCH ×2 (08:10→18:10)
[2020-12-11] MEDS ORDERED: Apixaban 5 MG TAB PO SCH (09:00)
[2020-12-11] MEDS: Amiodarone 200 MG TAB PO SCH ×2 (09:15→17:54)
[2020-12-11 12:25] VITALS: BP 113/83
[2020-12-11] MEDS ORDERED: Sodium Chloride 0.9% 500 ML IV SCH (16:15)
[2020-12-11 17:42] LABS: Actual Bicarbonate (HCO3a) 18.7 mEq/L (22-28); Analyzer IN Cardio OR; Base Excess (BEa) -4.9 mEq/L (-2.0 to +3.0); CO2 Tension 30.8 mmHg (35.0-45.0); Calcium, Ionized (arterial) 1.14 mmol/L (1.12-1.30); Carboxyhemoglobin (COHb) 0.8 gm% (0.0-3.0); Hemoglobin (Hb) 14.2 g/dL (14.0-18.0); O2 Tension (PaO2), arterial 106.8 mmHg (> 70.0); Puncture Site LRA
[2020-12-11 17:53] LABS: Mean Corpuscular HGB CONC 30.8 g/dL (32.0-36.0); Mean Corpuscular Hemoglobin 29.8 pg (27.0-31.0); Mean Corpuscular Volume 96.6 fL (78.0-98.0); Mean Platelet Volume 7.6 fL (7.4-10.4); Platelet Count 280 thou/uL (130-400); RBC Distribution Width 14.2 % (11.5-14.5); Red Blood Cell (RBC) Count 4.71 mill/uL (4.70-6.10); White Blood Cell (WBC) Count 21.4 thou/uL (4.8-10.8)
[2020-12-11] MEDS ORDERED: Lorazepam 2 MG/ML VIAL ONE (17:55)
[2020-12-11] MEDS: Lorazepam 2 MG/ML VIAL SLOW IVP PRN ×2 (18:00→23:34)
[2020-12-11 18:11] LABS: ALT (SGPT) 49 U/L (8-55); AST (SGOT) 60 U/L (5-34); Albumin 3.2 g/dL (3.4-4.8); Alkaline Phosphatase 115 U/L (40-110); Anion Gap 18 mmol/L (10-20); BUN (Urea Nitrogen) 27 mg/dL (8.4-25.7); Bilirubin, Total 0.5 mg/dL (0.2-1.2); Calc. Creatinine Clearance 57 mL/min (70-130); Carbon Dioxide 18 mmol/L (23-31); Chloride 106 mmol/L (98-107); Globulin 2.9 g/dL (2.4-3.5); Glucose 155 mg/dL (80-115); Potassium 4.6 mmol/L (3.5-5.1); Protein, Total 6.1 g/dL (5.8-8.1); Sodium 137 mmol/L (136-145)
[2020-12-11 18:13] LABS: Lactic Acid 4.2 mmol/L (0.5-2.2)
[2020-12-11] MEDS ORDERED: Vancomycin HCl 1 GM in Sodium Chloride 0.9% 250 ML 250 ML IVPB SCH (18:15)
[2020-12-11] MEDS ORDERED: Atropine Sulfate 1 mg/10 ml Syringe ONE (18:18)
[2020-12-11 18:20] LABS: Band 6 % (5-11); Eosinophils 2 % (0-10); Hypochromia SLIGHT = 6-15 cells (100X) (0-5/hpf); Lymphocytes 12 % (21-51); MDiff Complete? YES; Monocytes 15 % (0-10); Neutrophil 55 % (42-75); Platelet Morphology Comment Appears Adequate; Polychromasia SLIGHT = 2-3 cells (100X) (0-2/hpf); Reactive Lymphocytes 10 % (0-10)
[2020-12-11] MEDS ORDERED: DOPamine 400 MG/D5W 250 ML 250 ML ONE (18:20)
[2020-12-11] MEDS ORDERED: Atropine Sulfate 1 mg/1 ml Vial IVP SCH (18:45)
[2020-12-11] MEDS ORDERED: DOPamine 400 MG/D5W 250 ML 250 ML IVPB SCH (18:45)
[2020-12-11] MEDS: Sodium Chloride 0.9% 1,000 ML IV SCH (19:00)
[2020-12-11] MEDS ORDERED: Sodium Chloride 0.9% 1,000 ML IV SCH (19:30)
[2020-12-11 20:41] LABS: Actual Bicarbonate (HCO3a) 24.7 mEq/L (22-28); Base Excess (BEa) -1.6 mEq/L (-2.0 to +3.0); CO2 Tension 47.3 mmHg (35.0-45.0); Calcium, Ionized (arterial) 1.14 mmol/L (1.12-1.30); Carboxyhemoglobin (COHb) 0.8 gm% (0.0-3.0); Hemoglobin (Hb) 13.8 g/dL (14.0-18.0); O2 Tension (PaO2), arterial 508.9 mmHg (> 70.0); Potassium - ABG Lab 4.35 mmol/L (3.70-5.30); Puncture Site LRA; pH, Arterial 7.34 (7.35-7.45)
[2020-12-11 20:42] LABS: ALV-art Gradient 144.975 mmHg (0-20)
[2020-12-11] MEDS ORDERED: VANCOMYCIN 2 GRAM/400 ML BAG 2 GM in Premix Bag 1 BAG IVPB SCH (21:00)
[2020-12-11 21:31] LABS: #Eosinphils 0.3 thou/uL (0.0-0.7); #Monocytes 2.8 thou/uL (0.11-0.59); #Neutrophils 14.1 thou/uL (1.40-6.50); %Basophils 0.1 % (0.0-1.0); %Eosinophils 1.6 % (0.0-10.0); %Lymphocytes 10.4 % (21.0-51.0); %Monocytes 14.7 % (0.0-10.0); %Neutrophils 73.3 % (42.0-75.0); Hemoglobin 13.2 g/dL (14.0-18.0); Mean Corpuscular HGB CONC 31.3 g/dL (32.0-36.0); Mean Corpuscular Hemoglobin 30.2 pg (27.0-31.0); Mean Corpuscular Volume 96.4 fL (78.0-98.0); Mean Platelet Volume 7.7 fL (7.4-10.4); Platelet Count 287 thou/uL (130-400); RBC Distribution Width 13.8 % (11.5-14.5); Red Blood Cell (RBC) Count 4.38 mill/uL (4.70-6.10); White Blood Cell (WBC) Count 19.2 thou/uL (4.8-10.8)
[2020-12-11 21:44] LABS: ALT (SGPT) 76 U/L (8-55); AST (SGOT) 106 U/L (5-34); Albumin 3.2 g/dL (3.4-4.8); Alkaline Phosphatase 107 U/L (40-110); Anion Gap 11 mmol/L (10-20); BUN (Urea Nitrogen) 29 mg/dL (8.4-25.7); Bilirubin, Total 0.6 mg/dL (0.2-1.2); Calc. Creatinine Clearance 49 mL/min (70-130); Calcium 7.7 mg/dL (7.8-10.44); Carbon Dioxide 26 mmol/L (23-31); Chloride 104 mmol/L (98-107); Globulin 2.5 g/dL (2.4-3.5); Glucose 79 mg/dL (80-115); Potassium 4.3 mmol/L (3.5-5.1); Protein, Total 5.7 g/dL (5.8-8.1); Sodium 137 mmol/L (136-145)
[2020-12-11] MEDS: Piperacillin/Tazobactam 3.375 GM in Sodium Chloride 0.9% 100 ML IVPB SCH (21:50)
[2020-12-11 21:56] LABS: Lactic Acid 2.3 mmol/L (0.5-2.2)
[2020-12-12] MEDS: Piperacillin/Tazobactam 3.375 GM in Sodium Chloride 0.9% 100 ML IVPB SCH ×4 (02:00→19:40)
[2020-12-12 04:12] LABS: #Eosinphils 0.1 thou/uL (0.0-0.7); #Lymphocytes 2.2 thou/uL (1.20-3.40); #Monocytes 2.4 thou/uL (0.11-0.59); #Neutrophils 13.5 thou/uL (1.40-6.50); %Basophils 0.1 % (0.0-1.0); %Eosinophils 0.6 % (0.0-10.0); %Neutrophils 74.3 % (42.0-75.0); Hemoglobin 13.6 g/dL (14.0-18.0); Mean Corpuscular HGB CONC 31.4 g/dL (32.0-36.0); Mean Corpuscular Hemoglobin 30.2 pg (27.0-31.0); Mean Corpuscular Volume 96.2 fL (78.0-98.0); Platelet Count 308 thou/uL (130-400); Red Blood Cell (RBC) Count 4.49 mill/uL (4.70-6.10); White Blood Cell (WBC) Count 18.2 thou/uL (4.8-10.8)
[2020-12-12 04:17] LABS: Lactic Acid 1.7 mmol/L (0.5-2.2)
[2020-12-12 04:31] LABS: ALT (SGPT) 78 U/L (8-55); AST (SGOT) 78 U/L (5-34); Albumin 3.2 g/dL (3.4-4.8); Alkaline Phosphatase 96 U/L (40-110); Anion Gap 13 mmol/L (10-20); BUN (Urea Nitrogen) 31 mg/dL (8.4-25.7); Bilirubin, Total 0.8 mg/dL (0.2-1.2); Calc. Creatinine Clearance 43 mL/min (70-130); Calcium 7.8 mg/dL (7.8-10.44); Carbon Dioxide 23 mmol/L (23-31); Chloride 106 mmol/L (98-107); Globulin 2.7 g/dL (2.4-3.5); Glucose 108 mg/dL (80-115); Potassium 5.2 mmol/L (3.5-5.1); Protein, Total 5.9 g/dL (5.8-8.1); Sodium 137 mmol/L (136-145)
[2020-12-12] MEDS: Lorazepam 2 MG/ML VIAL SLOW IVP PRN ×3 (05:38→22:14)
[2020-12-12] MEDS: Sodium Chloride 0.9% 1,000 ML IV SCH ×2 (06:50→18:05)
[2020-12-12] MEDS: Budesonide 0.25 MG/2 ML NEB NEB SCH ×2 (07:53→18:13)
[2020-12-12] MEDS: predniSONE 20 MG TAB PO SCH (08:22)
[2020-12-12] MEDS: Vancomycin 1.5 GRAM/300 ML BAG 1.5 GM in Premix Bag 1 BAG IVPB SCH (20:57)
[2020-12-13] MEDS: Piperacillin/Tazobactam 3.375 GM in Sodium Chloride 0.9% 100 ML IVPB SCH ×4 (02:24→21:15)
[2020-12-13] MEDS: Sodium Chloride 0.9% 1,000 ML IV SCH ×2 (07:24→15:02)
[2020-12-13] MEDS: Budesonide 0.25 MG/2 ML NEB NEB SCH ×2 (07:41→19:51)
[2020-12-13] MEDS: predniSONE 20 MG TAB PO SCH (07:57)
[2020-12-13] MEDS: Lorazepam 2 MG/ML VIAL SLOW IVP PRN ×3 (09:58→23:26)
[2020-12-13] MEDS ORDERED: Haloperidol Lactate 5 MG/ML VIAL SLOW IVP PRN (18:35)
[2020-12-13 21:30] LABS: Vancomycin, Trough 11.8 ug/mL
[2020-12-13] MEDS: Vancomycin 1.5 GRAM/300 ML BAG 1.5 GM in Premix Bag 1 BAG IVPB SCH (23:25)
[2020-12-14] MEDS: Piperacillin/Tazobactam 3.375 GM in Sodium Chloride 0.9% 100 ML IVPB SCH ×3 (02:47→15:12)
[2020-12-14 04:00] LABS: #Eosinphils 0.2 thou/uL (0.0-0.7); #Lymphocytes 1.9 thou/uL (1.20-3.40); #Monocytes 1.9 thou/uL (0.11-0.59); #Neutrophils 12.2 thou/uL (1.40-6.50); %Basophils 0.2 % (0.0-1.0); %Eosinophils 1.1 % (0.0-10.0); %Lymphocytes 11.7 % (21.0-51.0); %Monocytes 11.7 % (0.0-10.0); %Neutrophils 75.2 % (42.0-75.0); Hemoglobin 12.8 g/dL (14.0-18.0); Mean Corpuscular HGB CONC 31.3 g/dL (32.0-36.0); Mean Corpuscular Hemoglobin 30.2 pg (27.0-31.0); Mean Corpuscular Volume 96.5 fL (78.0-98.0); Platelet Count 215 thou/uL (130-400); RBC Distribution Width 13.6 % (11.5-14.5); Red Blood Cell (RBC) Count 4.24 mill/uL (4.70-6.10); White Blood Cell (WBC) Count 16.3 thou/uL (4.8-10.8)
[2020-12-14 04:18] LABS: Anion Gap 13 mmol/L (10-20); BUN (Urea Nitrogen) 29 mg/dL (8.4-25.7); Calc. Creatinine Clearance 71 mL/min (70-130); Calcium 8.3 mg/dL (7.8-10.44); Carbon Dioxide 20 mmol/L (23-31); Chloride 109 mmol/L (98-107); Glucose 91 mg/dL (80-115); Sodium 137 mmol/L (136-145)
[2020-12-14] MEDS: Budesonide 0.25 MG/2 ML NEB NEB SCH ×2 (08:46→19:40)
[2020-12-14] MEDS ORDERED: Amiodarone 200 MG TAB PO SCH (09:00)
[2020-12-14] MEDS: Sodium Chloride 0.9% 1,000 ML IV SCH ×2 (09:47→13:17)
[2020-12-14] MEDS: predniSONE 20 MG TAB PO SCH (09:48)
[2020-12-14 19:37] VITALS: TEMP 97.7
== END 2020-12-14 20:30 | disposition left against medical advice (07) | DRG 917 ==
LOC: ERS 17:59 → 2NO 21:44 → CCU 12-11 17:36 → IMCU/EMU 12-13 14:52
PROVIDERS: ADMIT Student in an Organized Health Care Education/Training Program; ATTEND Internal Medicine
PROC: 3E033XZ Introduction of Vasopressor into Peripheral Vein, Percutaneous Approach (ICD-10-PCS; principal; 2020-12-11)
PROC: 5A09457 Assistance with Respiratory Ventilation, 24-96 Consecutive Hours, Continuous Positive Airway Pressure (ICD-10-PCS; 2020-12-11)
DX: T43.621A Poisoning by amphetamines, accidental (unintentional), initial encounter (principal); I21.A1 Myocardial infarction type 2; Z20.822 Contact with and (suspected) exposure to COVID-19; I50.23 Acute on chronic systolic (congestive) heart failure; J96.01 Acute respiratory failure with hypoxia; J44.1 Chronic obstructive pulmonary disease with (acute) exacerbation; I42.9 Cardiomyopathy, unspecified; E87.2 Acidosis; R65.10 Systemic inflammatory response syndrome (SIRS) of non-infectious origin without acute organ dysfunction; F17.200 Nicotine dependence, unspecified, uncomplicated; I25.10 Atherosclerotic heart disease of native coronary artery without angina pectoris; E78.5 Hyperlipidemia, unspecified; R91.1 Solitary pulmonary nodule; N18.30 Chronic kidney disease, stage 3 unspecified; I48.0 Paroxysmal atrial fibrillation; B19.20 Unspecified viral hepatitis C without hepatic coma; I16.0 Hypertensive urgency; Z86.73 Personal history of transient ischemic attack (TIA), and cerebral infarction without residual deficits; Z79.51 Long term (current) use of inhaled steroids; Z79.899 Other long term (current) drug therapy; Z91.19 Patient's noncompliance with other medical treatment and regimen
CPT/HCPCS: 36415; 36600; 71045; 71275; 74177; 80048; 80053; 80202; 80306; 81001; 82150; 82553; 82805; 83605; 83690; 83880; 84484; 85025; 85379; 87040; 87635; 93005; 93010; 93306; 94640; 94660; J0456; J0461; J1265; J1630; J1650; J1940; J2060; J2543; J2920; J2930; J3370; J3490; J7050; J7512; J7620; J7626; Q9967; U0003; U0005

== ENCOUNTER 2021-01-06 00:53 | Inpatient (IN) | payer MEDICARE, MEDICAID ==
[2021-01-06] MEDS ORDERED: Digoxin 0.5 MG/2 ML AMP ONE ×2 (01:42→06:00)
[2021-01-06 02:01] LABS: #Basophils 0.1 thou/uL (0.0-0.2); #Eosinphils 0.4 thou/uL (0.0-0.7); #Lymphocytes 1.9 thou/uL (1.20-3.40); #Monocytes 2.2 thou/uL (0.11-0.59); #Neutrophils 13.3 thou/uL (1.40-6.50); %Basophils 0.3 % (0.0-1.0); %Lymphocytes 10.6 % (21.0-51.0); %Monocytes 12.2 % (0.0-10.0); %Neutrophils 74.8 % (42.0-75.0); Hemoglobin 13.8 g/dL (14.0-18.0); Mean Corpuscular HGB CONC 31.1 g/dL (32.0-36.0); Mean Corpuscular Hemoglobin 29.7 pg (27.0-31.0); Mean Corpuscular Volume 95.6 fL (78.0-98.0); Mean Platelet Volume 8.4 fL (7.4-10.4); Platelet Count 253 thou/uL (130-400); RBC Distribution Width 13.4 % (11.5-14.5); Red Blood Cell (RBC) Count 4.64 mill/uL (4.70-6.10); White Blood Cell (WBC) Count 17.8 thou/uL (4.8-10.8)
[2021-01-06 02:44] LABS: CKMB 5.8 ng/mL (0-6.6)
[2021-01-06 03:04] LABS: ALT (SGPT) 120 U/L (8-55); AST (SGOT) 63 U/L (5-34); Albumin 3.4 g/dL (3.4-4.8); Alcohol Less than 10 mg/dL (Less than 10); Alkaline Phosphatase 129 U/L (40-110); Anion Gap 18 mmol/L (10-20); BUN (Urea Nitrogen) 50 mg/dL (8.4-25.7); Bilirubin, Total 0.7 mg/dL (0.2-1.2); Calc. Creatinine Clearance 0 mL/min (70-130); Calcium 8.7 mg/dL (7.8-10.44); Carbon Dioxide 23 mmol/L (23-31); Chloride 103 mmol/L (98-107); Globulin 2.8 g/dL (2.4-3.5); Glucose 101 mg/dL (83-110); Protein, Total 6.2 g/dL (5.8-8.1); Sodium 140 mmol/L (136-145)
[2021-01-06] MEDS ORDERED: Enoxaparin Sodium 100 MG/ML SYRINGE ONE (03:44)
[2021-01-06] MEDS ORDERED: Aspirin 81 mg Enteric Coated Tablet ONE (03:44)
[2021-01-06 04:57] LABS: SARS-CoV-2 NAA Rapid Test Not Detected (NotDetected)
[2021-01-06 06:21] LABS: Troponin I 0.123 ng/mL (< 0.028)
[2021-01-06 09:28] LABS: Troponin I 0.092 ng/mL (< 0.028)
[2021-01-06 09:58] VITALS: BMI 31.5
[2021-01-06] MEDS ORDERED: Acetaminophen 325 MG TAB PO PRN (10:00)
[2021-01-06] MEDS ORDERED: Ondansetron PF 4 MG/2 ML Vial IVP PRN ×2 (10:00→10:04)
[2021-01-06] MEDS ORDERED: Ondansetron ODT 4 MG TAB SL PRN (10:00)
[2021-01-06] MEDS ORDERED: Labetalol HCl 100 MG/20 ML VIAL SLOW IVP PRN (10:04)
[2021-01-06] MEDS ORDERED: Ondansetron ODT 4 MG TAB PO PRN (10:04)
[2021-01-06] MEDS ORDERED: Benzonatate 100 MG CAP PO PRN (10:04)
[2021-01-06] MEDS ORDERED: Acetaminophen 500 MG TAB PO PRN (10:04)
[2021-01-06] MEDS: methylPREDNISolone Sod Succ 40 MG VIAL IVP SCH ×3 (11:15→23:11)
[2021-01-06] MEDS: Nicotine 21 MG PATCH TD SCH (11:15)
[2021-01-06] MEDS: Azithromycin 500 MG in Sodium Chloride 0.9% 250 ML 250 ML IVPB SCH (11:15)
[2021-01-06] MEDS: Diltiazem 125 MG in Sodium Chloride 0.9% 100 ML IVPB SCH ×2 (11:20→17:23)
[2021-01-06] MEDS: Budesonide 0.25 MG/2 ML NEB INH SCH (18:56)
[2021-01-06 19:45] LABS: Anion Gap 19 mmol/L (10-20); BUN (Urea Nitrogen) 41 mg/dL (8.4-25.7); Calc. Creatinine Clearance 71 mL/min (70-130); Calcium 8.3 mg/dL (7.8-10.44); Carbon Dioxide 20 mmol/L (23-31); Chloride 101 mmol/L (98-107); Glucose 249 mg/dL (83-110); Magnesium 1.6 mg/dL (1.6-2.6); Potassium 5.1 mmol/L (3.5-5.1); Sodium 135 mmol/L (136-145)
[2021-01-06] MEDS: Carvedilol 25 MG TAB PO SCH (22:00)
[2021-01-06] MEDS: Atorvastatin Calcium 40 MG TAB PO SCH (22:00)
[2021-01-06] MEDS: Furosemide 40 MG TAB PO SCH (22:01)
[2021-01-06] MEDS: Famotidine 20 MG TAB PO SCH (22:01)
[2021-01-07 03:37] LABS: #Eosinphils 0.1 thou/uL (0.0-0.7); #Lymphocytes 1.2 thou/uL (1.20-3.40); #Monocytes 0.4 thou/uL (0.11-0.59); #Neutrophils 13.2 thou/uL (1.40-6.50); %Basophils 0.1 % (0.0-1.0); %Eosinophils 0.4 % (0.0-10.0); %Lymphocytes 8.3 % (21.0-51.0); %Monocytes 2.4 % (0.0-10.0); %Neutrophils 88.9 % (42.0-75.0); Hemoglobin 12.7 g/dL (14.0-18.0); Mean Corpuscular HGB CONC 31.2 g/dL (32.0-36.0); Mean Corpuscular Hemoglobin 29.5 pg (27.0-31.0); Mean Corpuscular Volume 94.5 fL (78.0-98.0); Mean Platelet Volume 8.2 fL (7.4-10.4); Platelet Count 187 thou/uL (130-400); RBC Distribution Width 13.3 % (11.5-14.5); Red Blood Cell (RBC) Count 4.32 mill/uL (4.70-6.10); White Blood Cell (WBC) Count 14.8 thou/uL (4.8-10.8)
[2021-01-07 04:07] LABS: ALT (SGPT) 97 U/L (8-55); AST (SGOT) 45 U/L (5-34); Albumin 3.2 g/dL (3.4-4.8); Alkaline Phosphatase 114 U/L (40-110); Anion Gap 14 mmol/L (10-20); BUN (Urea Nitrogen) 41 mg/dL (8.4-25.7); Bilirubin, Total 0.6 mg/dL (0.2-1.2); Calc. Creatinine Clearance 82 mL/min (70-130); Calcium 8.6 mg/dL (7.8-10.44); Carbon Dioxide 25 mmol/L (23-31); Chloride 102 mmol/L (98-107); Globulin 2.4 g/dL (2.4-3.5); Glucose 161 mg/dL (83-110); Potassium 4.5 mmol/L (3.5-5.1); Protein, Total 5.6 g/dL (5.8-8.1); Sodium 136 mmol/L (136-145)
[2021-01-07] MEDS: methylPREDNISolone Sod Succ 40 MG VIAL IVP SCH ×4 (05:53→23:59)
[2021-01-07] MEDS: Budesonide 0.25 MG/2 ML NEB INH SCH ×2 (07:32→18:43)
[2021-01-07] MEDS: Furosemide 40 MG TAB PO SCH ×2 (08:00→20:55)
[2021-01-07] MEDS ORDERED: Furosemide 40 MG/4 ML VIAL SLOW IVP SCH (08:30)
[2021-01-07] MEDS: Carvedilol 25 MG TAB PO SCH ×2 (08:50→20:50)
[2021-01-07] MEDS: Famotidine 20 MG TAB PO SCH ×2 (08:50→20:50)
[2021-01-07] MEDS: Aspirin 325 mg Enteric Coated Tablet PO SCH (08:50)
[2021-01-07] MEDS: Spironolactone 25 MG TAB PO SCH (08:51)
[2021-01-07 09:05] LABS: Amphetamine Not Detected (NotDetected); Benzodiazepine Screen Not Detected (NotDetected); Cocaine Metabolite Screen Not Detected (NotDetected); Medtox Reader # READER 4; Methadone Not Detected (NotDetected); Methamphetamine Not Detected (NotDetected); Opiate Screen Not Detected (NotDetected); Phencyclidine (PCP) Not Detected (NotDetected); THC/Cannabinoid Screen Not Detected (NotDetected); Tricyclic Screen Not Detected (NotDetected)
[2021-01-07 09:06] LABS: Barbiturates Screen Not Detected (NotDetected); Medtox Control Line Valid? VALID (VALID); Oxycodone Screen Not Detected (NotDetected)
[2021-01-07] MEDS: Azithromycin 500 MG in Sodium Chloride 0.9% 250 ML 250 ML IVPB SCH (11:10)
[2021-01-07] MEDS: Nicotine 21 MG PATCH TD SCH (11:10)
[2021-01-07] MEDS: Atorvastatin Calcium 40 MG TAB PO SCH (20:50)
[2021-01-08] MEDS: methylPREDNISolone Sod Succ 40 MG VIAL IVP SCH (05:47)
[2021-01-08] MEDS: Budesonide 0.25 MG/2 ML NEB INH SCH (06:32)
[2021-01-08 09:31] LABS: Hemoglobin 12.9 g/dL (14.0-18.0); Mean Corpuscular HGB CONC 30.7 g/dL (32.0-36.0); Mean Corpuscular Hemoglobin 28.7 pg (27.0-31.0); Mean Corpuscular Volume 93.3 fL (78.0-98.0); Mean Platelet Volume 8.2 fL (7.4-10.4); Platelet Count 197 thou/uL (130-400); RBC Distribution Width 13.2 % (11.5-14.5); Red Blood Cell (RBC) Count 4.48 mill/uL (4.70-6.10); White Blood Cell (WBC) Count 20.8 thou/uL (4.8-10.8)
[2021-01-08] MEDS: Carvedilol 25 MG TAB PO SCH (09:31)
[2021-01-08] MEDS: Aspirin 325 mg Enteric Coated Tablet PO SCH (09:31)
[2021-01-08] MEDS: Spironolactone 25 MG TAB PO SCH (09:31)
[2021-01-08] MEDS: Famotidine 20 MG TAB PO SCH (09:31)
[2021-01-08] MEDS: Furosemide 40 MG TAB PO SCH (09:31)
[2021-01-08 09:35] LABS: ALT (SGPT) 102 U/L (8-55); AST (SGOT) 52 U/L (5-34); Albumin 3.3 g/dL (3.4-4.8); Alkaline Phosphatase 117 U/L (40-110); Anion Gap 15 mmol/L (10-20); BUN (Urea Nitrogen) 46 mg/dL (8.4-25.7); Bilirubin, Total 0.7 mg/dL (0.2-1.2); Calc. Creatinine Clearance 79 mL/min (70-130); Calcium 8.9 mg/dL (7.8-10.44); Carbon Dioxide 24 mmol/L (23-31); Chloride 101 mmol/L (98-107); Globulin 2.7 g/dL (2.4-3.5); Glucose 130 mg/dL (83-110); Potassium 4.4 mmol/L (3.5-5.1); Sodium 136 mmol/L (136-145)
[2021-01-08 10:20] LABS: Band 2 % (5-11); Lymphocytes 7 % (21-51); MDiff Complete? YES; Metamyelocyte 1 % (0-0); Monocytes 9 % (0-10); Neutrophil 81 % (42-75); RBC Morphology Normal
[2021-01-08] MEDS ORDERED: methylPREDNISolone Sod Succ 40 MG VIAL ONE (12:33)
[2021-01-08] MEDS ORDERED: Nicotine 21 MG PATCH ONE (12:33)
[2021-01-08 14:01] VITALS: TEMP 98.1
[2021-01-08 14:26] VITALS: BP 143/75
[2021-01-08] MEDS: Nicotine 21 MG PATCH TD SCH (14:34)
[2021-01-08] MEDS ORDERED: Doxycycline 100 MG CAP PO SCH (21:00)
[2021-01-09] MEDS ORDERED: predniSONE 20 MG TAB PO SCH (08:00)
== END 2021-01-08 16:20 | disposition home or self-care (01) | DRG 280 ==
LOC: ERS 00:53 → IMCU/EMU 04:19
PROVIDERS: ADMIT Student in an Organized Health Care Education/Training Program; ATTEND Internal Medicine
DX: I48.92 Unspecified atrial flutter (principal); I50.23 Acute on chronic systolic (congestive) heart failure; I21.A1 Myocardial infarction type 2; J96.01 Acute respiratory failure with hypoxia; J44.1 Chronic obstructive pulmonary disease with (acute) exacerbation; N17.9 Acute kidney failure, unspecified; I13.0 Hypertensive heart and chronic kidney disease with heart failure and stage 1 through stage 4 chronic kidney disease, or unspecified chronic kidney disease; I48.20 Chronic atrial fibrillation, unspecified; I42.8 Other cardiomyopathies; I47.2 Ventricular tachycardia; I25.10 Atherosclerotic heart disease of native coronary artery without angina pectoris; N18.30 Chronic kidney disease, stage 3 unspecified; F17.210 Nicotine dependence, cigarettes, uncomplicated; I48.0 Paroxysmal atrial fibrillation; T38.0X5A Adverse effect of glucocorticoids and synthetic analogues, initial encounter; F15.90 Other stimulant use, unspecified, uncomplicated; R74.01 Elevation of levels of liver transaminase levels; D64.9 Anemia, unspecified; D72.828 Other elevated white blood cell count; Z59.0 Homelessness; Z79.52 Long term (current) use of systemic steroids; Z98.49 Cataract extraction status, unspecified eye; Z91.14 Patient's other noncompliance with medication regimen
CPT/HCPCS: 36415; 71046; 80053; 80306; 80307; 82553; 83605; 83735; 83880; 84484; 85025; 85379; 93005; 94640; 96365; 96366; 96375; 96376; J0456; J1160; J1650; J1940; J2920; J3490; J7050; J7620; J7626; U0002

== ENCOUNTER 2021-01-13 13:28 | Emergency (ER) | payer MEDICARE, MEDICAID | END 2021-01-13 14:08 | disposition home or self-care (01) | LOC: ERS 13:28 | DX: Z76.0 Encounter for issue of repeat prescription (principal); I11.0 Hypertensive heart disease with heart failure; I50.9 Heart failure, unspecified; J44.9 Chronic obstructive pulmonary disease, unspecified; E11.9 Type 2 diabetes mellitus without complications; F17.210 Nicotine dependence, cigarettes, uncomplicated; Z79.51 Long term (current) use of inhaled steroids | CPT/HCPCS: 99281 ==

== ENCOUNTER 2021-01-14 20:41 | Inpatient (IN) | payer MEDICARE, MEDICAID ==
[2021-01-14] MEDS ORDERED: Diltiazem 125 MG/25 ML ONE (21:08)
[2021-01-14 21:22] LABS: Hemoglobin 13.6 g/dL (14.0-18.0); Mean Corpuscular HGB CONC 31.2 g/dL (32.0-36.0); Mean Corpuscular Hemoglobin 29.5 pg (27.0-31.0); Mean Corpuscular Volume 94.6 fL (78.0-98.0); Mean Platelet Volume 8.3 fL (7.4-10.4); Platelet Count 180 thou/uL (130-400); RBC Distribution Width 13.8 % (11.5-14.5); Red Blood Cell (RBC) Count 4.59 mill/uL (4.70-6.10); White Blood Cell (WBC) Count 18.8 thou/uL (4.8-10.8)
[2021-01-14 21:33] LABS: PTT 28.2 sec (22.9-36.1); Prothrombin Time 13.6 sec (12.0-14.7)
[2021-01-14 21:40] LABS: ALT (SGPT) 57 U/L (8-55); AST (SGOT) 31 U/L (5-34); Albumin 3.7 g/dL (3.4-4.8); Alkaline Phosphatase 155 U/L (40-110); Anion Gap 13 mmol/L (10-20); BUN (Urea Nitrogen) 23 mg/dL (8.4-25.7); Bilirubin, Total 0.7 mg/dL (0.2-1.2); Calc. Creatinine Clearance 0 mL/min (70-130); Calcium 9.2 mg/dL (7.8-10.44); Carbon Dioxide 29 mmol/L (23-31); Chloride 107 mmol/L (98-107); Globulin 3.1 g/dL (2.4-3.5); Glucose 95 mg/dL (83-110); Protein, Total 6.8 g/dL (5.8-8.1); Sodium 144 mmol/L (136-145)
[2021-01-14] MEDS ORDERED: Lorazepam 2 MG/ML VIAL ONE (21:48)
[2021-01-14 21:55] LABS: Lymphocytes 7 % (21-51); MDiff Complete? YES; Metamyelocyte 1 % (0-0); Monocytes 3 % (0-10); Neutrophil 89 % (42-75); Platelet Morphology Comment Appears Adequate
[2021-01-14 22:01] LABS: CKMB 5.9 ng/mL (0-6.6)
[2021-01-14 22:24] LABS: Amphetamine Not Detected (NotDetected); Barbiturates Screen Not Detected (NotDetected); Benzodiazepine Screen Not Detected (NotDetected); Cocaine Metabolite Screen Not Detected (NotDetected); Medtox Control Line Valid? VALID (VALID); Medtox Reader # READER 1; Methadone Not Detected (NotDetected); Methamphetamine Detected (NotDetected); Opiate Screen Not Detected (NotDetected); Oxycodone Screen Not Detected (NotDetected); Phencyclidine (PCP) Not Detected (NotDetected); THC/Cannabinoid Screen Not Detected (NotDetected); Tricyclic Screen Not Detected (NotDetected)
[2021-01-14 22:39] LABS: Acetaminophen Less than 6.0 mcg/mL (10.0-30.0); Alcohol Less than 10 mg/dL (Less than 10); Salicylate Less than 8.0 mg/dL (15.0-30.0)
[2021-01-14] MEDS ORDERED: Enoxaparin Sodium 100 MG/ML SYRINGE ONE (23:01)
[2021-01-15] MEDS ORDERED: Acetaminophen 325 MG TAB PO PRN (00:52)
[2021-01-15] MEDS ORDERED: Ondansetron PF 4 MG/2 ML Vial IVP PRN (00:52)
[2021-01-15] MEDS ORDERED: Lorazepam 2 MG/ML VIAL SLOW IVP SCH (01:00)
[2021-01-15 01:27] LABS: Troponin I 0.105 ng/mL (< 0.028)
[2021-01-15] MEDS ORDERED: Furosemide 20 MG/2 ML VIAL ONE ×2 (01:37→14:19)
[2021-01-15] MEDS ORDERED: Lorazepam 2 MG/ML VIAL ONE (01:37)
[2021-01-15] MEDS ORDERED: Diltiazem 125 MG in Sodium Chloride 0.9% 100 ML IVPB SCH (01:45)
[2021-01-15] MEDS: Furosemide 20 MG/2 ML VIAL SLOW IVP SCH ×2 (01:50→14:15)
[2021-01-15] MEDS ORDERED: Propofol 1,000 MG/100 ML VIAL IV PRN (02:30)
[2021-01-15] MEDS ORDERED: Fentanyl CADD 100 ML IV SCH (02:30)
[2021-01-15] MEDS ORDERED: DISCONTINUE PREVIOUS NARCOTIC PAIN MEDICATIONS AND BENZODIAZEPINES FS SCH (02:30)
[2021-01-15] MEDS ORDERED: Propofol BOLUS 1,000 MG/100 ML VIAL IV PRN (02:30)
[2021-01-15] MEDS ORDERED: Fentanyl BOLUS 250 ML IVPB PRN (02:30)
[2021-01-15] MEDS ORDERED: Morphine 2 MG/ML VIAL SLOW IVP PRN (02:30)
[2021-01-15] MEDS ORDERED: Lorazepam 2 MG/ML VIAL SLOW IVP PRN (02:30)
[2021-01-15 04:42] LABS: #Basophils 0.1 thou/uL (0.0-0.2); #Eosinphils 0.2 thou/uL (0.0-0.7); #Lymphocytes 1.7 thou/uL (1.20-3.40); #Monocytes 1.7 thou/uL (0.11-0.59); %Basophils 0.4 % (0.0-1.0); %Eosinophils 1.3 % (0.0-10.0); %Lymphocytes 11.1 % (21.0-51.0); %Monocytes 10.6 % (0.0-10.0); %Neutrophils 76.6 % (42.0-75.0); Hemoglobin 12.4 g/dL (14.0-18.0); Mean Corpuscular HGB CONC 30.9 g/dL (32.0-36.0); Mean Corpuscular Hemoglobin 29.4 pg (27.0-31.0); Mean Corpuscular Volume 95.1 fL (78.0-98.0); Mean Platelet Volume 8.6 fL (7.4-10.4); Platelet Count 153 thou/uL (130-400); RBC Distribution Width 13.8 % (11.5-14.5); Red Blood Cell (RBC) Count 4.22 mill/uL (4.70-6.10); White Blood Cell (WBC) Count 15.6 thou/uL (4.8-10.8)
[2021-01-15 05:06] LABS: Chloride 106 mmol/L (98-107); Potassium 4.6 mmol/L (3.5-5.1); Sodium 141 mmol/L (136-145)
[2021-01-15 05:07] LABS: Calcium 8.3 mg/dL (7.8-10.44); Glucose 110 mg/dL (83-110)
[2021-01-15 05:08] LABS: Anion Gap 15 mmol/L (10-20); Carbon Dioxide 25 mmol/L (23-31)
[2021-01-15 05:10] LABS: Calc. Creatinine Clearance 92 mL/min (70-130)
[2021-01-15 05:11] LABS: BUN (Urea Nitrogen) 21 mg/dL (8.4-25.7)
[2021-01-15 05:12] LABS: ALT (SGPT) 44 U/L (8-55); AST (SGOT) 26 U/L (5-34); Albumin 3.1 g/dL (3.4-4.8); Alkaline Phosphatase 110 U/L (40-110); Bilirubin, Direct 0.4 mg/dL (0.1-0.3); Bilirubin, Total 0.7 mg/dL (0.2-1.2); Magnesium 1.9 mg/dL (1.6-2.6); Protein, Total 5.7 g/dL (5.8-8.1)
[2021-01-15 05:14] LABS: Troponin I 0.101 ng/mL (< 0.028)
[2021-01-15] MEDS ORDERED: Carvedilol 6.25 MG TAB PO SCH (08:00)
[2021-01-15] MEDS ORDERED: Amiodarone 150 MG in Dextrose 5% in Water 100 ML IVPB SCH ×2 (08:30→12:15)
[2021-01-15] MEDS: Aspirin 81 mg Enteric Coated Tablet PO SCH (10:35)
[2021-01-15] MEDS: Amiodarone 450 MG in Dextrose 5% in Water 250 ML IVPB SCH ×3 (12:30→21:53)
[2021-01-15] MEDS ORDERED: Metoprolol Tartrate 5 MG/5 ML VIAL IVP SCH (16:30)
[2021-01-15] MEDS ORDERED: Digoxin 0.5 MG/2 ML AMP SLOW IVP SCH (16:30)
[2021-01-15] MEDS ORDERED: Digoxin 0.5 MG/2 ML AMP ONE (17:25)
[2021-01-15] MEDS ORDERED: Metoprolol Tartrate 5 MG/5 ML VIAL ONE (17:25)
[2021-01-15] MEDS: Carvedilol 6.25 MG TAB PO SCH (18:34)
[2021-01-15] MEDS: Budesonide 0.25 MG/2 ML NEB INH SCH (21:51)
[2021-01-15] MEDS: Atorvastatin Calcium 40 MG TAB PO SCH (21:52)
[2021-01-16 04:12] LABS: #Eosinphils 0.2 thou/uL (0.0-0.7); #Lymphocytes 1.4 thou/uL (1.20-3.40); #Monocytes 1.2 thou/uL (0.11-0.59); #Neutrophils 11.1 thou/uL (1.40-6.50); %Basophils 0.1 % (0.0-1.0); %Eosinophils 1.6 % (0.0-10.0); %Lymphocytes 10.2 % (21.0-51.0); %Monocytes 8.3 % (0.0-10.0); %Neutrophils 79.9 % (42.0-75.0); Hemoglobin 12.4 g/dL (14.0-18.0); Mean Corpuscular HGB CONC 29.7 g/dL (32.0-36.0); Mean Corpuscular Hemoglobin 28.6 pg (27.0-31.0); Mean Corpuscular Volume 96.3 fL (78.0-98.0); Mean Platelet Volume 8.4 fL (7.4-10.4); Platelet Count 159 thou/uL (130-400); RBC Distribution Width 13.6 % (11.5-14.5); Red Blood Cell (RBC) Count 4.33 mill/uL (4.70-6.10); White Blood Cell (WBC) Count 13.9 thou/uL (4.8-10.8)
[2021-01-16 04:35] LABS: Anion Gap 11 mmol/L (10-20); BUN (Urea Nitrogen) 24 mg/dL (8.4-25.7); Calc. Creatinine Clearance 80 mL/min (70-130); Calcium 8.5 mg/dL (7.8-10.44); Carbon Dioxide 28 mmol/L (23-31); Chloride 105 mmol/L (98-107); Glucose 101 mg/dL (83-110); Potassium 5.3 mmol/L (3.5-5.1); Sodium 139 mmol/L (136-145)
[2021-01-16] MEDS: Furosemide 20 MG/2 ML VIAL SLOW IVP SCH ×2 (05:20→14:09)
[2021-01-16] MEDS: Carvedilol 6.25 MG TAB PO SCH ×2 (08:46→17:24)
[2021-01-16] MEDS: Aspirin 81 mg Enteric Coated Tablet PO SCH (08:46)
[2021-01-16] MEDS ORDERED: Aspirin 81 mg Enteric Coated Tablet PO SCH (09:00)
[2021-01-16] MEDS: Amiodarone 450 MG in Dextrose 5% in Water 250 ML IVPB SCH (12:08)
[2021-01-16] MEDS: Budesonide 0.25 MG/2 ML NEB INH SCH ×2 (12:47→19:23)
[2021-01-16] MEDS: Atorvastatin Calcium 40 MG TAB PO SCH (21:06)
[2021-01-17] MEDS: Amiodarone 450 MG in Dextrose 5% in Water 250 ML IVPB SCH (03:21)
[2021-01-17 04:18] LABS: #Eosinphils 0.2 thou/uL (0.0-0.7); #Lymphocytes 1.5 thou/uL (1.20-3.40); #Monocytes 1.4 thou/uL (0.11-0.59); #Neutrophils 10.4 thou/uL (1.40-6.50); %Basophils 0.2 % (0.0-1.0); %Eosinophils 1.8 % (0.0-10.0); %Lymphocytes 11.3 % (21.0-51.0); %Monocytes 10.2 % (0.0-10.0); %Neutrophils 76.4 % (42.0-75.0); Hemoglobin 12.3 g/dL (14.0-18.0); Mean Corpuscular HGB CONC 29.4 g/dL (32.0-36.0); Mean Corpuscular Hemoglobin 28.1 pg (27.0-31.0); Mean Corpuscular Volume 95.5 fL (78.0-98.0); Mean Platelet Volume 7.7 fL (7.4-10.4); Platelet Count 175 thou/uL (130-400); RBC Distribution Width 13.4 % (11.5-14.5); Red Blood Cell (RBC) Count 4.37 mill/uL (4.70-6.10); White Blood Cell (WBC) Count 13.6 thou/uL (4.8-10.8)
[2021-01-17 04:30] LABS: Anion Gap 9 mmol/L (10-20); BUN (Urea Nitrogen) 25 mg/dL (8.4-25.7); Calc. Creatinine Clearance 75 mL/min (70-130); Calcium 8.1 mg/dL (7.8-10.44); Carbon Dioxide 33 mmol/L (23-31); Chloride 98 mmol/L (98-107); Glucose 133 mg/dL (83-110); Magnesium 1.9 mg/dL (1.6-2.6); Potassium 4.1 mmol/L (3.5-5.1); Sodium 136 mmol/L (136-145)
[2021-01-17] MEDS: Furosemide 20 MG/2 ML VIAL SLOW IVP SCH ×2 (06:12→14:40)
[2021-01-17] MEDS: Aspirin 81 mg Enteric Coated Tablet PO SCH (08:22)
[2021-01-17] MEDS: Carvedilol 6.25 MG TAB PO SCH ×2 (08:22→17:53)
[2021-01-17] MEDS: Budesonide 0.25 MG/2 ML NEB INH SCH ×2 (08:23→18:43)
[2021-01-17] MEDS: Amiodarone 200 MG TAB PO SCH (20:32)
[2021-01-17] MEDS: Enoxaparin Sodium 40 MG/0.4 ML SYRINGE SC SCH ×2 (20:32→20:35)
[2021-01-17] MEDS: Atorvastatin Calcium 40 MG TAB PO SCH (20:33)
[2021-01-18] MEDS: Furosemide 20 MG/2 ML VIAL SLOW IVP SCH ×2 (05:10→14:57)
[2021-01-18] MEDS: Budesonide 0.25 MG/2 ML NEB INH SCH ×2 (07:02→18:51)
[2021-01-18] MEDS: Carvedilol 6.25 MG TAB PO SCH ×2 (07:59→16:02)
[2021-01-18] MEDS: Aspirin 81 mg Enteric Coated Tablet PO SCH (07:59)
[2021-01-18] MEDS: Amiodarone 200 MG TAB PO SCH ×2 (07:59→21:06)
[2021-01-18] MEDS: Atorvastatin Calcium 40 MG TAB PO SCH (21:07)
[2021-01-18] MEDS: Enoxaparin Sodium 40 MG/0.4 ML SYRINGE SC SCH (21:10)
[2021-01-19] MEDS: Furosemide 20 MG/2 ML VIAL SLOW IVP SCH ×2 (05:43→15:39)
[2021-01-19] MEDS: Amiodarone 200 MG TAB PO SCH ×2 (08:35→20:23)
[2021-01-19] MEDS: Carvedilol 6.25 MG TAB PO SCH ×2 (08:35→18:50)
[2021-01-19] MEDS: Aspirin 81 mg Enteric Coated Tablet PO SCH (08:35)
[2021-01-19] MEDS: Budesonide 0.25 MG/2 ML NEB INH SCH ×2 (10:23→19:38)
[2021-01-19] MEDS: Atorvastatin Calcium 40 MG TAB PO SCH (20:23)
[2021-01-19] MEDS: Enoxaparin Sodium 40 MG/0.4 ML SYRINGE SC SCH ×2 (20:23→20:30)
[2021-01-20] MEDS: Furosemide 20 MG/2 ML VIAL SLOW IVP SCH ×2 (05:46→14:31)
[2021-01-20] MEDS: Carvedilol 6.25 MG TAB PO SCH ×2 (08:35→17:16)
[2021-01-20] MEDS: Aspirin 81 mg Enteric Coated Tablet PO SCH (08:35)
[2021-01-20] MEDS: Amiodarone 200 MG TAB PO SCH ×2 (08:36→20:47)
[2021-01-20] MEDS: Budesonide 0.25 MG/2 ML NEB INH SCH ×2 (10:31→19:10)
[2021-01-20] MEDS: Atorvastatin Calcium 40 MG TAB PO SCH (20:47)
[2021-01-20] MEDS: Enoxaparin Sodium 40 MG/0.4 ML SYRINGE SC SCH (20:48)
[2021-01-21 06:26] LABS: #Basophils 0.1 thou/uL (0.0-0.2); #Eosinphils 0.3 thou/uL (0.0-0.7); #Lymphocytes 2.1 thou/uL (1.20-3.40); #Monocytes 1.3 thou/uL (0.11-0.59); %Basophils 0.4 % (0.0-1.0); %Eosinophils 2.2 % (0.0-10.0); %Monocytes 9.3 % (0.0-10.0); Hemoglobin 13.7 g/dL (14.0-18.0); Mean Corpuscular HGB CONC 31.9 g/dL (32.0-36.0); Mean Corpuscular Hemoglobin 29.5 pg (27.0-31.0); Mean Corpuscular Volume 92.5 fL (78.0-98.0); Mean Platelet Volume 7.7 fL (7.4-10.4); Platelet Count 284 thou/uL (130-400); RBC Distribution Width 13.2 % (11.5-14.5); Red Blood Cell (RBC) Count 4.65 mill/uL (4.70-6.10); White Blood Cell (WBC) Count 13.7 thou/uL (4.8-10.8)
[2021-01-21] MEDS: Furosemide 20 MG/2 ML VIAL SLOW IVP SCH ×2 (06:30→14:07)
[2021-01-21 06:46] LABS: Anion Gap 10 mmol/L (10-20); BUN (Urea Nitrogen) 20 mg/dL (8.4-25.7); Calc. Creatinine Clearance 80 mL/min (70-130); Calcium 9.1 mg/dL (7.8-10.44); Carbon Dioxide 34 mmol/L (23-31); Chloride 100 mmol/L (98-107); Glucose 109 mg/dL (83-110); Potassium 4.3 mmol/L (3.5-5.1); Sodium 140 mmol/L (136-145)
[2021-01-21] MEDS: Budesonide 0.25 MG/2 ML NEB INH SCH (07:57)
[2021-01-21] MEDS: Carvedilol 6.25 MG TAB PO SCH ×2 (08:56→17:16)
[2021-01-21] MEDS: Amiodarone 200 MG TAB PO SCH (08:56)
[2021-01-21] MEDS: Aspirin 81 mg Enteric Coated Tablet PO SCH (08:56)
[2021-01-21 15:27] VITALS: TEMP 97.8
[2021-01-21 15:28] VITALS: BP 112/64
== END 2021-01-21 17:47 | disposition home or self-care (01) | DRG 308 ==
LOC: ERS 20:41 → ERHOLD 23:57 → IMCU/EMU 01-15 21:49
PROVIDERS: ADMIT Internal Medicine; ATTEND Internal Medicine
DX: I48.91 Unspecified atrial fibrillation (principal); J96.01 Acute respiratory failure with hypoxia; G92 Toxic encephalopathy; I50.23 Acute on chronic systolic (congestive) heart failure; I13.0 Hypertensive heart and chronic kidney disease with heart failure and stage 1 through stage 4 chronic kidney disease, or unspecified chronic kidney disease; J44.1 Chronic obstructive pulmonary disease with (acute) exacerbation; F15.13 Other stimulant abuse with withdrawal; I24.8 Other forms of acute ischemic heart disease; T43.621A Poisoning by amphetamines, accidental (unintentional), initial encounter; I42.9 Cardiomyopathy, unspecified; I48.3 Typical atrial flutter; I48.4 Atypical atrial flutter; Z20.822 Contact with and (suspected) exposure to COVID-19; F17.210 Nicotine dependence, cigarettes, uncomplicated; E78.5 Hyperlipidemia, unspecified; E11.22 Type 2 diabetes mellitus with diabetic chronic kidney disease; F15.129 Other stimulant abuse with intoxication, unspecified; D72.829 Elevated white blood cell count, unspecified; N18.30 Chronic kidney disease, stage 3 unspecified; Z91.14 Patient's other noncompliance with medication regimen; Z79.51 Long term (current) use of inhaled steroids; Z79.52 Long term (current) use of systemic steroids; Z79.82 Long term (current) use of aspirin; Z79.899 Other long term (current) drug therapy
CPT/HCPCS: 36415; 36416; 71045; 80048; 80053; 80076; 80306; 80307; 82553; 83735; 83880; 84484; 85025; 85610; 85730; 93005; 96365; 96366; 96372; 96375; 96376; J0282; J1160; J1650; J1940; J2060; J3490; J7070; J7620; J7626

== ENCOUNTER 2021-02-05 06:27 | Emergency (ER) | payer MEDICARE, MEDICAID ==
[2021-02-05] MEDS ORDERED: Furosemide 40 MG/4 ML VIAL ONE (06:51)
[2021-02-05] MEDS ORDERED: Aspirin Chewable 81 MG TAB ONE (06:51)
[2021-02-05 07:00] LABS: #Eosinphils 0.2 thou/uL (0.0-0.7); #Lymphocytes 1.7 thou/uL (1.20-3.40); #Monocytes 1.6 thou/uL (0.11-0.59); #Neutrophils 11.7 thou/uL (1.40-6.50); %Basophils 0.2 % (0.0-1.0); %Eosinophils 1.4 % (0.0-10.0); %Lymphocytes 10.9 % (21.0-51.0); %Monocytes 10.3 % (0.0-10.0); %Neutrophils 77.2 % (42.0-75.0); Hemoglobin 13.2 g/dL (14.0-18.0); Mean Corpuscular Hemoglobin 30.1 pg (27.0-31.0); Mean Corpuscular Volume 93.8 fL (78.0-98.0); Platelet Count 204 thou/uL (130-400); RBC Distribution Width 15.1 % (11.5-14.5); Red Blood Cell (RBC) Count 4.39 mill/uL (4.70-6.10); White Blood Cell (WBC) Count 15.2 thou/uL (4.8-10.8)
[2021-02-05] MEDS ORDERED: Digoxin 0.5 MG/2 ML AMP ONE (07:13)
[2021-02-05 07:28] LABS: ALT (SGPT) 42 U/L (8-55); AST (SGOT) 28 U/L (5-34); Albumin 3.6 g/dL (3.4-4.8); Alkaline Phosphatase 141 U/L (40-110); Anion Gap 9 mmol/L (10-20); BUN (Urea Nitrogen) 20 mg/dL (8.4-25.7); Bilirubin, Total 0.8 mg/dL (0.2-1.2); Calc. Creatinine Clearance 0 mL/min (70-130); Calcium 9.1 mg/dL (7.8-10.44); Carbon Dioxide 27 mmol/L (23-31); Chloride 107 mmol/L (98-107); Glucose 109 mg/dL (83-110); Potassium 4.4 mmol/L (3.5-5.1); Protein, Total 6.6 g/dL (5.8-8.1); Sodium 139 mmol/L (136-145)
[2021-02-05 07:54] LABS: CKMB 7.7 ng/mL (0-6.6)
[2021-02-05] MEDS ORDERED: Metoprolol Tartrate 25 MG TAB ONE (08:22)
[2021-02-05] MEDS ORDERED: Metoprolol Tartrate 5 MG/5 ML VIAL ONE (08:23)
[2021-02-05 08:31] LABS: SARS-CoV-2 NAA Rapid Test Not Detected (NotDetected)
[2021-02-05 09:05] LABS: Bilirubin Negative (Negative); Blood, Urine Negative (Negative); Clarity Clear (Clear); Glucose, Urine (Dipstick) Normal (Negative); Ketone, Urine Negative (Negative); Leukocyte Negative Leu/uL (Negative); Nitrite Negative (Negative); Protein, Urine (Dipstick) 20 mg/dL (Neg-Trace); Specific Gravity, Urine 1.009 (1.002-1.036); Urobilinogen Normal mg/dL (Less than 2)
[2021-02-05] MEDS ORDERED: Albuterol Sulfate 2.5 mg/3 ml Neb NEB PRN (10:47)
[2021-02-05] MEDS ORDERED: Senokot S 8.6-50 MG TAB PO PRN (10:47)
[2021-02-05] MEDS ORDERED: Guaifenesin DM 100-10/5 ML UDCUP PO PRN (10:47)
[2021-02-05] MEDS ORDERED: Acetaminophen 325 MG TAB PO PRN (10:47)
[2021-02-05] MEDS ORDERED: Ondansetron PF 4 MG/2 ML Vial IVP PRN (10:47)
[2021-02-05] MEDS ORDERED: Benzonatate 100 MG CAP PO PRN (10:54)
[2021-02-05] MEDS ORDERED: Metoprolol Tartrate 5 MG/5 ML VIAL IVP PRN (10:54)
[2021-02-05] MEDS ORDERED: Nicotine 21 MG PATCH TD SCH (13:00)
[2021-02-05] MEDS ORDERED: Azithromycin 500 MG in Sodium Chloride 0.9% 250 ML 250 ML IVPB SCH (14:00)
[2021-02-05] MEDS ORDERED: methylPREDNISolone Sod Succ 40 MG VIAL IVP SCH (15:00)
[2021-02-05] MEDS ORDERED: Budesonide 0.25 MG/2 ML NEB INH SCH (18:30)
[2021-02-05] MEDS ORDERED: Atorvastatin Calcium 40 MG TAB PO SCH (21:00)
[2021-02-05] MEDS ORDERED: Furosemide 40 MG TAB PO SCH (21:00)
[2021-02-05] MEDS ORDERED: Carvedilol 6.25 MG TAB PO SCH (21:00)
[2021-02-06] MEDS ORDERED: Enoxaparin Sodium 40 MG/0.4 ML SYRINGE SC SCH (09:00)
[2021-02-06] MEDS ORDERED: Aspirin 81 mg Enteric Coated Tablet PO SCH (09:00)
[2021-02-06] MEDS ORDERED: Amiodarone 200 MG TAB PO SCH (09:00)
== END 2021-02-05 10:19 | disposition short-term general hospital (02) ==
LOC: ERS 06:27
DX: I48.92 Unspecified atrial flutter (principal); I11.0 Hypertensive heart disease with heart failure; I50.9 Heart failure, unspecified; Z20.822 Contact with and (suspected) exposure to COVID-19; E11.9 Type 2 diabetes mellitus without complications; E78.5 Hyperlipidemia, unspecified; F17.210 Nicotine dependence, cigarettes, uncomplicated
CPT/HCPCS: 0240U; 71045; 80053; 81003; 82553; 83880; 84484; 85025; 93005; 94660; 96374; 96375; 99285; J1160; J1940

== ENCOUNTER 2021-02-18 09:16 | Inpatient (IN) | payer MEDICARE, MEDICAID ==
[2021-02-18 09:53] LABS: #Eosinphils 0.1 thou/uL (0.0-0.7); #Lymphocytes 1.8 thou/uL (1.20-3.40); #Monocytes 0.9 thou/uL (0.11-0.59); %Basophils 0.2 % (0.0-1.0); %Eosinophils 0.8 % (0.0-10.0); %Lymphocytes 12.9 % (21.0-51.0); %Monocytes 6.8 % (0.0-10.0); %Neutrophils 79.2 % (42.0-75.0); Hemoglobin 12.5 g/dL (14.0-18.0); Mean Corpuscular HGB CONC 30.3 g/dL (32.0-36.0); Mean Corpuscular Hemoglobin 28.5 pg (27.0-31.0); Mean Corpuscular Volume 94.1 fL (78.0-98.0); Platelet Count 150 thou/uL (130-400); RBC Distribution Width 15.7 % (11.5-14.5); White Blood Cell (WBC) Count 13.8 thou/uL (4.8-10.8)
[2021-02-18 10:16] LABS: ALT (SGPT) 40 U/L (8-55); AST (SGOT) 28 U/L (5-34); Albumin 3.4 g/dL (3.4-4.8); Alkaline Phosphatase 104 U/L (40-110); Anion Gap 14 mmol/L (10-20); BUN (Urea Nitrogen) 22 mg/dL (8.4-25.7); Bilirubin, Total 1.4 mg/dL (0.2-1.2); Calc. Creatinine Clearance 0 mL/min (70-130); Calcium 8.5 mg/dL (7.8-10.44); Carbon Dioxide 25 mmol/L (23-31); Chloride 106 mmol/L (98-107); Globulin 2.3 g/dL (2.4-3.5); Glucose 171 mg/dL (83-110); Magnesium 1.8 mg/dL (1.6-2.6); Potassium 3.9 mmol/L (3.5-5.1); Protein, Total 5.7 g/dL (5.8-8.1); Sodium 141 mmol/L (136-145)
[2021-02-18] MEDS ORDERED: Diltiazem 125 MG/25 ML ONE (10:51)
[2021-02-18] MEDS ORDERED: Diltiazem 125 MG in Sodium Chloride 0.9% 100 ML IVPB SCH ×2 (11:00→19:30)
[2021-02-18] MEDS ORDERED: Digoxin 0.5 MG/2 ML AMP ONE (11:47)
[2021-02-18] MEDS ORDERED: Magnesium Sulfate 2 GM in Sodium Chloride 0.9% 100 ML IVPB SCH (12:45)
[2021-02-18] MEDS ORDERED: Magnesium 2 GM/50 ML 2 GM in Premix Bag 1 BAG IVPB SCH (12:45)
[2021-02-18 13:06] LABS: Troponin I 0.061 ng/mL (< 0.028)
[2021-02-18] MEDS ORDERED: Enoxaparin Sodium 100 MG/ML SYRINGE ONE (13:21)
[2021-02-18] MEDS ORDERED: Magnesium 2 GM/50 ML BAG (IN WATER) ONE (13:21)
[2021-02-18] MEDS ORDERED: HYDROcodone/Acetaminophen 5/325 mg Tablet PO PRN (15:41)
[2021-02-18] MEDS ORDERED: Senokot S 8.6-50 MG TAB PO PRN (15:41)
[2021-02-18] MEDS ORDERED: Acetaminophen 325 MG TAB PO PRN (15:41)
[2021-02-18] MEDS ORDERED: Calcium Carbonate 500 MG ChewTAB PO PRN (15:41)
[2021-02-18] MEDS ORDERED: Furosemide 40 MG/4 ML VIAL SLOW IVP SCH (15:45)
[2021-02-18] MEDS ORDERED: HumaLOG 300 UNITS/3 ML VIAL SC PRN (15:52)
[2021-02-18] MEDS ORDERED: Dextrose 50% Abboject 50 ML SYRINGE SLOW IVP PRN (15:52)
[2021-02-18] MEDS ORDERED: Dextrose 5% in Water 1,000 ML IV PRN (15:52)
[2021-02-18 16:31] LABS: Troponin I 0.063 ng/mL (< 0.028)
[2021-02-18 21:48] LABS: SARS-CoV-2 PCR by NAA Not Detected (NotDetected)
[2021-02-18] MEDS: Famotidine 20 MG TAB PO SCH (21:50)
[2021-02-19 04:45] LABS: #Eosinphils 0.3 thou/uL (0.0-0.7); #Lymphocytes 2.1 thou/uL (1.20-3.40); #Monocytes 1.4 thou/uL (0.11-0.59); #Neutrophils 9.7 thou/uL (1.40-6.50); %Basophils 0.1 % (0.0-1.0); %Eosinophils 2.4 % (0.0-10.0); %Lymphocytes 15.6 % (21.0-51.0); %Monocytes 10.4 % (0.0-10.0); %Neutrophils 71.5 % (42.0-75.0); Hemoglobin 12.6 g/dL (14.0-18.0); Mean Corpuscular HGB CONC 31.7 g/dL (32.0-36.0); Mean Corpuscular Volume 94.8 fL (78.0-98.0); Platelet Count 142 thou/uL (130-400); RBC Distribution Width 15.8 % (11.5-14.5); Red Blood Cell (RBC) Count 4.19 mill/uL (4.70-6.10); White Blood Cell (WBC) Count 13.5 thou/uL (4.8-10.8)
[2021-02-19 05:08] LABS: ALT (SGPT) 31 U/L (8-55); AST (SGOT) 26 U/L (5-34); Albumin 3.2 g/dL (3.4-4.8); Alkaline Phosphatase 136 U/L (40-110); Anion Gap 11 mmol/L (10-20); BUN (Urea Nitrogen) 22 mg/dL (8.4-25.7); Bilirubin, Total 0.6 mg/dL (0.2-1.2); Calc. Creatinine Clearance 75 mL/min (70-130); Calcium 8.2 mg/dL (7.8-10.44); Carbon Dioxide 28 mmol/L (23-31); Chloride 106 mmol/L (98-107); Globulin 2.2 g/dL (2.4-3.5); Glucose 144 mg/dL (83-110); Potassium 4.1 mmol/L (3.5-5.1); Protein, Total 5.4 g/dL (5.8-8.1); Sodium 141 mmol/L (136-145)
[2021-02-19] MEDS: Furosemide 40 MG/4 ML VIAL SLOW IVP SCH ×2 (06:36→15:58)
[2021-02-19] MEDS: Enoxaparin Sodium 40 MG/0.4 ML SYRINGE SC SCH (09:20)
[2021-02-19] MEDS: Nicotine 21 MG PATCH TD SCH (09:20)
[2021-02-19] MEDS: Famotidine 20 MG TAB PO SCH ×2 (09:26→20:15)
[2021-02-19] MEDS: Carvedilol 6.25 MG TAB PO SCH (17:09)
[2021-02-19] MEDS: Budesonide 0.25 MG/2 ML NEB INH SCH (18:14)
[2021-02-19] MEDS: Atorvastatin Calcium 40 MG TAB PO SCH (20:15)
[2021-02-19] MEDS ORDERED: Carvedilol 6.25 MG TAB PO SCH (21:00)
[2021-02-19] MEDS: Guaifenesin DM 100-10/5 ML UDCUP PO PRN (21:09)
[2021-02-20 05:16] LABS: Anion Gap 12 mmol/L (10-20); BUN (Urea Nitrogen) 22 mg/dL (8.4-25.7); Calc. Creatinine Clearance 76 mL/min (70-130); Calcium 8.6 mg/dL (7.8-10.44); Carbon Dioxide 29 mmol/L (23-31); Chloride 101 mmol/L (98-107); Glucose 95 mg/dL (83-110); Magnesium 1.7 mg/dL (1.6-2.6); Potassium 4.1 mmol/L (3.5-5.1); Sodium 138 mmol/L (136-145)
[2021-02-20] MEDS: Furosemide 40 MG/4 ML VIAL SLOW IVP SCH ×2 (05:30→14:10)
[2021-02-20] MEDS: Budesonide 0.25 MG/2 ML NEB INH SCH ×2 (07:00→18:41)
[2021-02-20] MEDS ORDERED: Magnesium 2 GM/50 ML 2 GM in Premix Bag 1 BAG IVPB SCH (07:30)
[2021-02-20] MEDS: Enoxaparin Sodium 40 MG/0.4 ML SYRINGE SC SCH (08:35)
[2021-02-20] MEDS: Nicotine 21 MG PATCH TD SCH (08:35)
[2021-02-20] MEDS: Carvedilol 6.25 MG TAB PO SCH (08:35)
[2021-02-20] MEDS: Famotidine 20 MG TAB PO SCH ×2 (08:35→20:22)
[2021-02-20] MEDS: Aspirin 81 mg Enteric Coated Tablet PO SCH (08:35)
[2021-02-20] MEDS ORDERED: Digoxin 0.5 MG/2 ML AMP SLOW IVP SCH (15:45)
[2021-02-20] MEDS: Guaifenesin DM 100-10/5 ML UDCUP PO PRN (20:22)
[2021-02-20] MEDS: Atorvastatin Calcium 40 MG TAB PO SCH (20:22)
[2021-02-21 05:09] LABS: #Eosinphils 0.4 thou/uL (0.0-0.7); #Lymphocytes 1.8 thou/uL (1.20-3.40); #Monocytes 1.4 thou/uL (0.11-0.59); #Neutrophils 10.4 thou/uL (1.40-6.50); %Basophils 0.1 % (0.0-1.0); %Eosinophils 2.7 % (0.0-10.0); %Lymphocytes 12.8 % (21.0-51.0); %Monocytes 10.1 % (0.0-10.0); %Neutrophils 74.3 % (42.0-75.0); Hemoglobin 12.7 g/dL (14.0-18.0); Mean Corpuscular HGB CONC 31.5 g/dL (32.0-36.0); Mean Corpuscular Hemoglobin 29.6 pg (27.0-31.0); Mean Corpuscular Volume 94.1 fL (78.0-98.0); Mean Platelet Volume 8.3 fL (7.4-10.4); Platelet Count 148 thou/uL (130-400); RBC Distribution Width 15.3 % (11.5-14.5); Red Blood Cell (RBC) Count 4.31 mill/uL (4.70-6.10)
[2021-02-21 05:29] LABS: Anion Gap 11 mmol/L (10-20); BUN (Urea Nitrogen) 27 mg/dL (8.4-25.7); Calc. Creatinine Clearance 71 mL/min (70-130); Calcium 8.7 mg/dL (7.8-10.44); Carbon Dioxide 31 mmol/L (23-31); Chloride 102 mmol/L (98-107); Glucose 100 mg/dL (83-110); Potassium 4.2 mmol/L (3.5-5.1); Sodium 140 mmol/L (136-145)
[2021-02-21] MEDS: Furosemide 40 MG/4 ML VIAL SLOW IVP SCH ×2 (05:41→15:47)
[2021-02-21] MEDS: Budesonide 0.25 MG/2 ML NEB INH SCH ×2 (07:05→18:23)
[2021-02-21] MEDS ORDERED: Diltiazem 125 MG in Sodium Chloride 0.9% 100 ML IVPB SCH ×2 (08:00→15:05)
[2021-02-21] MEDS: Aspirin 81 mg Enteric Coated Tablet PO SCH (09:03)
[2021-02-21] MEDS: Famotidine 20 MG TAB PO SCH ×2 (09:03→20:28)
[2021-02-21] MEDS: Nicotine 21 MG PATCH TD SCH (09:04)
[2021-02-21] MEDS: Enoxaparin Sodium 40 MG/0.4 ML SYRINGE SC SCH (09:04)
[2021-02-21] MEDS: Atorvastatin Calcium 40 MG TAB PO SCH (20:28)
[2021-02-22] MEDS: Furosemide 40 MG/4 ML VIAL SLOW IVP SCH ×2 (05:23→14:17)
[2021-02-22] MEDS: Budesonide 0.25 MG/2 ML NEB INH SCH ×2 (07:06→18:24)
[2021-02-22 07:08] LABS: Anion Gap 11 mmol/L (10-20); BUN (Urea Nitrogen) 26 mg/dL (8.4-25.7); Calc. Creatinine Clearance 78 mL/min (70-130); Calcium 8.9 mg/dL (7.8-10.44); Carbon Dioxide 32 mmol/L (23-31); Chloride 101 mmol/L (98-107); Glucose 92 mg/dL (83-110); Magnesium 1.9 mg/dL (1.6-2.6); Potassium 4.1 mmol/L (3.5-5.1); Sodium 140 mmol/L (136-145)
[2021-02-22] MEDS: Aspirin 81 mg Enteric Coated Tablet PO SCH (08:32)
[2021-02-22] MEDS: Enoxaparin Sodium 40 MG/0.4 ML SYRINGE SC SCH ×2 (08:32→08:35)
[2021-02-22] MEDS: Nicotine 21 MG PATCH TD SCH (08:33)
[2021-02-22] MEDS: Famotidine 20 MG TAB PO SCH ×2 (08:33→20:20)
[2021-02-22] MEDS: Atorvastatin Calcium 40 MG TAB PO SCH (20:20)
[2021-02-22] MEDS: Diltiazem 125 MG in Sodium Chloride 0.9% 100 ML IVPB SCH (22:43)
[2021-02-23 04:55] LABS: #Basophils 0.1 thou/uL (0.0-0.2); #Eosinphils 0.4 thou/uL (0.0-0.7); #Lymphocytes 2.4 thou/uL (1.20-3.40); #Monocytes 1.3 thou/uL (0.11-0.59); #Neutrophils 8.2 thou/uL (1.40-6.50); %Basophils 0.7 % (0.0-1.0); %Eosinophils 3.4 % (0.0-10.0); %Monocytes 10.6 % (0.0-10.0); %Neutrophils 66.3 % (42.0-75.0); Hemoglobin 12.8 g/dL (14.0-18.0); Mean Corpuscular HGB CONC 31.2 g/dL (32.0-36.0); Mean Corpuscular Hemoglobin 29.1 pg (27.0-31.0); Mean Corpuscular Volume 93.4 fL (78.0-98.0); Mean Platelet Volume 8.3 fL (7.4-10.4); Platelet Count 192 thou/uL (130-400); RBC Distribution Width 15.5 % (11.5-14.5); Red Blood Cell (RBC) Count 4.41 mill/uL (4.70-6.10); White Blood Cell (WBC) Count 12.3 thou/uL (4.8-10.8)
[2021-02-23 05:18] LABS: Anion Gap 13 mmol/L (10-20); BUN (Urea Nitrogen) 21 mg/dL (8.4-25.7); Calc. Creatinine Clearance 86 mL/min (70-130); Calcium 9.1 mg/dL (7.8-10.44); Carbon Dioxide 29 mmol/L (23-31); Chloride 102 mmol/L (98-107); Glucose 102 mg/dL (83-110); Potassium 3.9 mmol/L (3.5-5.1); Sodium 140 mmol/L (136-145)
[2021-02-23] MEDS: Furosemide 40 MG/4 ML VIAL SLOW IVP SCH ×3 (06:25→15:08)
[2021-02-23] MEDS: Budesonide 0.25 MG/2 ML NEB INH SCH ×2 (07:25→18:26)
[2021-02-23] MEDS: Nicotine 21 MG PATCH TD SCH (08:49)
[2021-02-23] MEDS: Famotidine 20 MG TAB PO SCH ×2 (08:49→20:14)
[2021-02-23] MEDS: Aspirin 81 mg Enteric Coated Tablet PO SCH (08:49)
[2021-02-23] MEDS: Enoxaparin Sodium 40 MG/0.4 ML SYRINGE SC SCH (08:50)
[2021-02-23] MEDS: Atorvastatin Calcium 40 MG TAB PO SCH (20:14)
[2021-02-24] MEDS: Diltiazem 125 MG in Sodium Chloride 0.9% 100 ML IVPB SCH ×2 (02:07→21:33)
[2021-02-24] MEDS: Furosemide 40 MG/4 ML VIAL SLOW IVP SCH ×2 (05:46→14:36)
[2021-02-24] MEDS: Budesonide 0.25 MG/2 ML NEB INH SCH ×2 (07:27→18:43)
[2021-02-24] MEDS: Nicotine 21 MG PATCH TD SCH (09:29)
[2021-02-24] MEDS: Enoxaparin Sodium 40 MG/0.4 ML SYRINGE SC SCH (09:30)
[2021-02-24] MEDS: Famotidine 20 MG TAB PO SCH ×2 (09:30→20:25)
[2021-02-24] MEDS: Aspirin 81 mg Enteric Coated Tablet PO SCH (09:50)
[2021-02-24] MEDS: Guaifenesin DM 100-10/5 ML UDCUP PO PRN (15:32)
[2021-02-24] MEDS: Atorvastatin Calcium 40 MG TAB PO SCH (20:25)
[2021-02-25] MEDS: Furosemide 40 MG/4 ML VIAL SLOW IVP SCH ×2 (06:03→13:20)
[2021-02-25 07:12] LABS: #Eosinphils 0.2 thou/uL (0.0-0.7); #Lymphocytes 2.3 thou/uL (1.20-3.40); #Monocytes 1.5 thou/uL (0.11-0.59); #Neutrophils 12.5 thou/uL (1.40-6.50); %Basophils 0.3 % (0.0-1.0); %Eosinophils 1.1 % (0.0-10.0); %Lymphocytes 14.1 % (21.0-51.0); %Neutrophils 75.5 % (42.0-75.0); Hemoglobin 14.5 g/dL (14.0-18.0); Mean Corpuscular HGB CONC 31.8 g/dL (32.0-36.0); Mean Corpuscular Hemoglobin 29.3 pg (27.0-31.0); Mean Corpuscular Volume 92.2 fL (78.0-98.0); Mean Platelet Volume 7.9 fL (7.4-10.4); Platelet Count 235 thou/uL (130-400); RBC Distribution Width 15.4 % (11.5-14.5); Red Blood Cell (RBC) Count 4.96 mill/uL (4.70-6.10); White Blood Cell (WBC) Count 16.6 thou/uL (4.8-10.8)
[2021-02-25 07:31] LABS: Anion Gap 12 mmol/L (10-20); BUN (Urea Nitrogen) 22 mg/dL (8.4-25.7); Calc. Creatinine Clearance 71 mL/min (70-130); Calcium 9.9 mg/dL (7.8-10.44); Carbon Dioxide 30 mmol/L (23-31); Chloride 98 mmol/L (98-107); Glucose 112 mg/dL (83-110); Potassium 4.4 mmol/L (3.5-5.1); Sodium 136 mmol/L (136-145)
[2021-02-25] MEDS: Budesonide 0.25 MG/2 ML NEB INH SCH ×2 (07:42→18:48)
[2021-02-25] MEDS: Enoxaparin Sodium 40 MG/0.4 ML SYRINGE SC SCH (07:52)
[2021-02-25] MEDS: Famotidine 20 MG TAB PO SCH ×2 (07:53→22:00)
[2021-02-25] MEDS: Aspirin 81 mg Enteric Coated Tablet PO SCH (07:53)
[2021-02-25] MEDS: Nicotine 21 MG PATCH TD SCH (07:54)
[2021-02-25] MEDS: Guaifenesin DM 100-10/5 ML UDCUP PO PRN (13:20)
[2021-02-25] MEDS: Diltiazem 125 MG in Sodium Chloride 0.9% 100 ML IVPB SCH (17:05)
[2021-02-25] MEDS: Atorvastatin Calcium 40 MG TAB PO SCH (22:00)
[2021-02-26 05:12] LABS: #Basophils 0.1 thou/uL (0.0-0.2); #Eosinphils 0.4 thou/uL (0.0-0.7); #Lymphocytes 2.5 thou/uL (1.20-3.40); #Monocytes 1.8 thou/uL (0.11-0.59); %Basophils 0.6 % (0.0-1.0); %Eosinophils 2.7 % (0.0-10.0); %Lymphocytes 16.7 % (21.0-51.0); %Monocytes 12.4 % (0.0-10.0); %Neutrophils 67.7 % (42.0-75.0); Hemoglobin 12.5 g/dL (14.0-18.0); Mean Corpuscular Hemoglobin 30.4 pg (27.0-31.0); Mean Platelet Volume 8.3 fL (7.4-10.4); Platelet Count 232 thou/uL (130-400); RBC Distribution Width 15.2 % (11.5-14.5); Red Blood Cell (RBC) Count 4.13 mill/uL (4.70-6.10); White Blood Cell (WBC) Count 14.7 thou/uL (4.8-10.8)
[2021-02-26 05:42] LABS: Anion Gap 13 mmol/L (10-20); BUN (Urea Nitrogen) 23 mg/dL (8.4-25.7); Calc. Creatinine Clearance 79 mL/min (70-130); Calcium 9.1 mg/dL (7.8-10.44); Carbon Dioxide 29 mmol/L (23-31); Chloride 97 mmol/L (98-107); Glucose 102 mg/dL (83-110); Potassium 4.1 mmol/L (3.5-5.1); Sodium 135 mmol/L (136-145)
[2021-02-26] MEDS: Furosemide 40 MG/4 ML VIAL SLOW IVP SCH ×2 (06:00→14:16)
[2021-02-26] MEDS: Budesonide 0.25 MG/2 ML NEB INH SCH ×2 (07:39→18:38)
[2021-02-26] MEDS: Famotidine 20 MG TAB PO SCH ×2 (08:02→20:43)
[2021-02-26] MEDS: Aspirin 81 mg Enteric Coated Tablet PO SCH (08:02)
[2021-02-26] MEDS: Nicotine 21 MG PATCH TD SCH (08:02)
[2021-02-26] MEDS: Enoxaparin Sodium 40 MG/0.4 ML SYRINGE SC SCH (08:08)
[2021-02-26] MEDS: Atorvastatin Calcium 40 MG TAB PO SCH (20:43)
[2021-02-27] MEDS ORDERED: Metoprolol Tartrate 5 MG/5 ML VIAL IVP SCH (01:30)
[2021-02-27] MEDS: Diltiazem 125 MG in Sodium Chloride 0.9% 100 ML IVPB SCH (03:45)
[2021-02-27 05:22] LABS: #Eosinphils 0.2 thou/uL (0.0-0.7); #Lymphocytes 2.1 thou/uL (1.20-3.40); #Monocytes 1.9 thou/uL (0.11-0.59); #Neutrophils 13.8 thou/uL (1.40-6.50); %Basophils 0.2 % (0.0-1.0); %Lymphocytes 11.7 % (21.0-51.0); %Monocytes 10.7 % (0.0-10.0); %Neutrophils 76.5 % (42.0-75.0); Hemoglobin 12.4 g/dL (14.0-18.0); Mean Corpuscular HGB CONC 31.4 g/dL (32.0-36.0); Mean Corpuscular Hemoglobin 28.8 pg (27.0-31.0); Mean Corpuscular Volume 91.5 fL (78.0-98.0); Mean Platelet Volume 7.9 fL (7.4-10.4); Platelet Count 295 thou/uL (130-400); RBC Distribution Width 15.3 % (11.5-14.5); Red Blood Cell (RBC) Count 4.32 mill/uL (4.70-6.10); White Blood Cell (WBC) Count 18.1 thou/uL (4.8-10.8)
[2021-02-27 05:45] LABS: Anion Gap 10 mmol/L (10-20); BUN (Urea Nitrogen) 25 mg/dL (8.4-25.7); Calc. Creatinine Clearance 88 mL/min (70-130); Calcium 9.2 mg/dL (7.8-10.44); Carbon Dioxide 28 mmol/L (23-31); Chloride 97 mmol/L (98-107); Glucose 113 mg/dL (83-110); Potassium 4.3 mmol/L (3.5-5.1); Sodium 131 mmol/L (136-145)
[2021-02-27] MEDS: Furosemide 40 MG/4 ML VIAL SLOW IVP SCH ×2 (06:25→14:25)
[2021-02-27] MEDS: Nicotine 21 MG PATCH TD SCH (08:10)
[2021-02-27] MEDS: Famotidine 20 MG TAB PO SCH ×2 (08:10→20:18)
[2021-02-27] MEDS: Aspirin 81 mg Enteric Coated Tablet PO SCH (08:10)
[2021-02-27] MEDS: Enoxaparin Sodium 40 MG/0.4 ML SYRINGE SC SCH (08:10)
[2021-02-27] MEDS: Guaifenesin DM 100-10/5 ML UDCUP PO PRN (08:14)
[2021-02-27] MEDS: Budesonide 0.25 MG/2 ML NEB INH SCH ×2 (10:47→18:43)
[2021-02-27] MEDS: Atorvastatin Calcium 40 MG TAB PO SCH (20:18)
[2021-02-28] MEDS: Furosemide 40 MG/4 ML VIAL SLOW IVP SCH ×2 (05:39→14:34)
[2021-02-28] MEDS: Budesonide 0.25 MG/2 ML NEB INH SCH ×2 (07:22→19:29)
[2021-02-28] MEDS: Enoxaparin Sodium 40 MG/0.4 ML SYRINGE SC SCH (08:31)
[2021-02-28] MEDS: Aspirin 81 mg Enteric Coated Tablet PO SCH (08:33)
[2021-02-28] MEDS: Famotidine 20 MG TAB PO SCH ×2 (08:33→21:26)
[2021-02-28] MEDS: Nicotine 21 MG PATCH TD SCH (08:33)
[2021-02-28] MEDS ORDERED: HYDROcodone/Acetaminophen 5/325 mg Tablet PO PRN (15:47)
[2021-02-28] MEDS: Atorvastatin Calcium 40 MG TAB PO SCH (21:26)
[2021-03-01] MEDS: Diltiazem 125 MG in Sodium Chloride 0.9% 100 ML IVPB SCH (04:32)
[2021-03-01] MEDS: Furosemide 40 MG/4 ML VIAL SLOW IVP SCH ×2 (05:50→15:02)
[2021-03-01 05:56] VITALS: BMI 28.0
[2021-03-01] MEDS: Budesonide 0.25 MG/2 ML NEB INH SCH ×2 (07:31→18:55)
[2021-03-01] MEDS: Famotidine 20 MG TAB PO SCH ×2 (09:44→23:22)
[2021-03-01] MEDS: Aspirin 81 mg Enteric Coated Tablet PO SCH (09:45)
[2021-03-01] MEDS: Nicotine 21 MG PATCH TD SCH (09:45)
[2021-03-01] MEDS: Enoxaparin Sodium 40 MG/0.4 ML SYRINGE SC SCH (09:47)
[2021-03-01] MEDS: Atorvastatin Calcium 40 MG TAB PO SCH (20:19)
[2021-03-01] MEDS ORDERED: Melatonin 3 MG TAB PO PRN (22:58)
[2021-03-02] MEDS: Furosemide 40 MG/4 ML VIAL SLOW IVP SCH ×2 (05:56→14:54)
[2021-03-02] MEDS: Budesonide 0.25 MG/2 ML NEB INH SCH ×2 (08:36→18:58)
[2021-03-02] MEDS: Nicotine 21 MG PATCH TD SCH (08:42)
[2021-03-02] MEDS: Famotidine 20 MG TAB PO SCH ×2 (08:42→21:53)
[2021-03-02] MEDS: Enoxaparin Sodium 40 MG/0.4 ML SYRINGE SC SCH (08:42)
[2021-03-02] MEDS: Aspirin 81 mg Enteric Coated Tablet PO SCH (08:42)
[2021-03-02] MEDS ORDERED: Ondansetron PF 4 MG/2 ML Vial IVP PRN (11:36)
[2021-03-02] MEDS ORDERED: Sodium Chloride 0.65% Nasal 44 ML BOT EA NARE PRN (11:36)
[2021-03-02] MEDS ORDERED: Loperamide HCl 2 MG CAP PO PRN (11:36)
[2021-03-02] MEDS ORDERED: Ondansetron ODT 4 MG TAB PO PRN (11:36)
[2021-03-02] MEDS ORDERED: Benzonatate 100 MG CAP PO PRN (11:36)
[2021-03-02] MEDS ORDERED: GUAIFENESIN SF SOLN 200 MG/10 ML UDCUP PO PRN (11:36)
[2021-03-02] MEDS ORDERED: Bisacodyl 10 MG SUPP PR PRN (11:36)
[2021-03-02] MEDS ORDERED: Bisacodyl 5 MG TAB PO PRN (11:36)
[2021-03-02] MEDS ORDERED: Loratadine 10 MG TAB PO PRN (11:36)
[2021-03-02] MEDS ORDERED: Cepastat Lozenges 1 LOZ PO PRN (11:36)
[2021-03-02] MEDS ORDERED: Zolpidem Tartrate 5 MG TAB PO PRN (11:36)
[2021-03-02] MEDS ORDERED: hydrALAZINE 20 MG/ML VIAL SLOW IVP PRN (11:36)
[2021-03-02] MEDS: Atorvastatin Calcium 40 MG TAB PO SCH (21:53)
[2021-03-03 05:04] LABS: #Basophils 0.1 thou/uL (0.0-0.2); #Eosinphils 0.4 thou/uL (0.0-0.7); #Lymphocytes 2.2 thou/uL (1.20-3.40); #Monocytes 1.6 thou/uL (0.11-0.59); #Neutrophils 8.9 thou/uL (1.40-6.50); %Basophils 0.5 % (0.0-1.0); %Eosinophils 3.3 % (0.0-10.0); %Lymphocytes 16.6 % (21.0-51.0); %Neutrophils 67.7 % (42.0-75.0); Hemoglobin 12.1 g/dL (14.0-18.0); Mean Corpuscular HGB CONC 31.3 g/dL (32.0-36.0); Mean Corpuscular Volume 92.5 fL (78.0-98.0); Platelet Count 396 thou/uL (130-400); RBC Distribution Width 14.8 % (11.5-14.5); Red Blood Cell (RBC) Count 4.19 mill/uL (4.70-6.10); White Blood Cell (WBC) Count 13.2 thou/uL (4.8-10.8)
[2021-03-03 05:27] LABS: Anion Gap 13 mmol/L (10-20); BUN (Urea Nitrogen) 40 mg/dL (8.4-25.7); Calc. Creatinine Clearance 52 mL/min (70-130); Carbon Dioxide 26 mmol/L (23-31); Chloride 97 mmol/L (98-107); Glucose 112 mg/dL (83-110); Phosphorus 3.5 mg/dL (2.3-4.7); Potassium 4.1 mmol/L (3.5-5.1); Sodium 132 mmol/L (136-145)
[2021-03-03] MEDS: Furosemide 40 MG/4 ML VIAL SLOW IVP SCH (06:25)
[2021-03-03] MEDS: Aspirin 81 mg Enteric Coated Tablet PO SCH (07:58)
[2021-03-03] MEDS: Enoxaparin Sodium 40 MG/0.4 ML SYRINGE SC SCH (07:59)
[2021-03-03] MEDS: Famotidine 20 MG TAB PO SCH ×2 (07:59→20:15)
[2021-03-03] MEDS: Nicotine 21 MG PATCH TD SCH (08:00)
[2021-03-03] MEDS: Budesonide 0.25 MG/2 ML NEB INH SCH ×2 (10:10→18:40)
[2021-03-03] MEDS: Atorvastatin Calcium 40 MG TAB PO SCH (20:15)
[2021-03-04 05:06] LABS: #Eosinphils 0.7 thou/uL (0.0-0.7); #Lymphocytes 2.6 thou/uL (1.20-3.40); #Monocytes 1.5 thou/uL (0.11-0.59); #Neutrophils 6.3 thou/uL (1.40-6.50); %Basophils 0.3 % (0.0-1.0); %Eosinophils 6.5 % (0.0-10.0); %Lymphocytes 23.1 % (21.0-51.0); %Monocytes 13.1 % (0.0-10.0); Hemoglobin 12.6 g/dL (14.0-18.0); Mean Corpuscular HGB CONC 30.6 g/dL (32.0-36.0); Mean Corpuscular Hemoglobin 28.2 pg (27.0-31.0); Mean Corpuscular Volume 92.3 fL (78.0-98.0); Mean Platelet Volume 8.6 fL (7.4-10.4); Platelet Count 258 thou/uL (130-400); RBC Distribution Width 14.8 % (11.5-14.5); Red Blood Cell (RBC) Count 4.48 mill/uL (4.70-6.10); White Blood Cell (WBC) Count 11.1 thou/uL (4.8-10.8)
[2021-03-04 05:34] LABS: Anion Gap 17 mmol/L (10-20); BUN (Urea Nitrogen) 36 mg/dL (8.4-25.7); Calc. Creatinine Clearance 59 mL/min (70-130); Calcium 8.8 mg/dL (7.8-10.44); Carbon Dioxide 19 mmol/L (23-31); Chloride 100 mmol/L (98-107); Glucose 88 mg/dL (83-110); Sodium 131 mmol/L (136-145)
[2021-03-04] MEDS: Budesonide 0.25 MG/2 ML NEB INH SCH ×2 (07:32→18:42)
[2021-03-04] MEDS: Famotidine 20 MG TAB PO SCH ×2 (08:11→20:24)
[2021-03-04] MEDS: Aspirin 81 mg Enteric Coated Tablet PO SCH (08:12)
[2021-03-04] MEDS: Enoxaparin Sodium 40 MG/0.4 ML SYRINGE SC SCH (08:12)
[2021-03-04] MEDS: Nicotine 21 MG PATCH TD SCH (08:13)
[2021-03-04] MEDS: Atorvastatin Calcium 40 MG TAB PO SCH (20:24)
[2021-03-05] MEDS: Budesonide 0.25 MG/2 ML NEB INH SCH ×2 (07:28→19:56)
[2021-03-05] MEDS: Aspirin 81 mg Enteric Coated Tablet PO SCH (09:05)
[2021-03-05] MEDS: Enoxaparin Sodium 40 MG/0.4 ML SYRINGE SC SCH (09:05)
[2021-03-05] MEDS: Nicotine 21 MG PATCH TD SCH (09:05)
[2021-03-05] MEDS: Famotidine 20 MG TAB PO SCH ×2 (09:05→20:39)
[2021-03-05] MEDS: Digoxin 0.5 MG/2 ML AMP SLOW IVP SCH ×2 (11:22→14:31)
[2021-03-05] MEDS ORDERED: Digoxin 0.25 MG TAB PO SCH (13:00)
[2021-03-05] MEDS: Atorvastatin Calcium 40 MG TAB PO SCH (20:39)
[2021-03-06] MEDS: Budesonide 0.25 MG/2 ML NEB INH SCH ×2 (07:50→18:42)
[2021-03-06] MEDS: Aspirin 81 mg Enteric Coated Tablet PO SCH (08:55)
[2021-03-06] MEDS: Famotidine 20 MG TAB PO SCH (08:56)
[2021-03-06] MEDS: Nicotine 21 MG PATCH TD SCH (08:57)
[2021-03-06] MEDS: Enoxaparin Sodium 40 MG/0.4 ML SYRINGE SC SCH (08:57)
[2021-03-06] MEDS ORDERED: Digoxin 0.25 MG TAB PO SCH (09:00)
[2021-03-06 18:31] VITALS: BP 128/76; TEMP 98.2
== END 2021-03-06 19:15 | disposition home or self-care (01) | DRG 291 ==
LOC: ERS 09:16 → ERHOLD 12:07 → 2NO 16:31
PROVIDERS: ADMIT Family Medicine; ATTEND Emergency Medicine
DX: I13.0 Hypertensive heart and chronic kidney disease with heart failure and stage 1 through stage 4 chronic kidney disease, or unspecified chronic kidney disease (principal); I50.23 Acute on chronic systolic (congestive) heart failure; Z20.822 Contact with and (suspected) exposure to COVID-19; N17.9 Acute kidney failure, unspecified; I48.3 Typical atrial flutter; J44.1 Chronic obstructive pulmonary disease with (acute) exacerbation; B18.2 Chronic viral hepatitis C; I48.0 Paroxysmal atrial fibrillation; R91.8 Other nonspecific abnormal finding of lung field; F17.210 Nicotine dependence, cigarettes, uncomplicated; F14.10 Cocaine abuse, uncomplicated; F15.10 Other stimulant abuse, uncomplicated; F11.10 Opioid abuse, uncomplicated; E78.5 Hyperlipidemia, unspecified; N18.9 Chronic kidney disease, unspecified; E11.22 Type 2 diabetes mellitus with diabetic chronic kidney disease; I25.10 Atherosclerotic heart disease of native coronary artery without angina pectoris; I42.9 Cardiomyopathy, unspecified; Z71.51 Drug abuse counseling and surveillance of drug abuser; Z91.14 Patient's other noncompliance with medication regimen; Z79.899 Other long term (current) drug therapy; Z79.82 Long term (current) use of aspirin; Z59.0 Homelessness; Z91.19 Patient's noncompliance with other medical treatment and regimen; Z86.73 Personal history of transient ischemic attack (TIA), and cerebral infarction without residual deficits; Z79.52 Long term (current) use of systemic steroids; Z71.6 Tobacco abuse counseling
CPT/HCPCS: 36415; 36416; 71045; 80048; 80053; 82553; 83735; 83880; 84100; 84443; 84484; 85025; 93005; 94640; 96365; 96366; 96374; 96376; J1160; J1650; J1815; J1940; J3475; J3490; J7620; J7626; U0003; U0005